=== PATIENT | female | born 1970 | race Hispanic/Latino ===

== ENCOUNTER 2021-07-17 00:36 | Day surgery (SDC) | payer OTHER, SELFPAY ==
[2021-07-05 14:09] VITALS: BMI 27.3
[2021-07-17 10:39] VITALS: BP 132/85; PULSE 68; RESP 18; TEMP 36.4; O2SAT 100
--- NOTE | 2021-07-17 10:45 | P.PNAN_ITS ---
Anes - Initial Pre Proc Eval Procedure: Operation Date: 07/17/21 12:30 Proposed Procedures p Esophagogastroduodenoscopy & Screening Colonoscopy - David Langley MD Date/Time: 07/17/21 10:45 Surgeon: David Tam MD Pre Op Diagnosis: GERD, neoplasm screening Patient Data Age: 51 Gender: F Height: 1.65 m Weight: 72.9 kg Last Vital Signs Temp 97.6 F 07/17/21 10:39 Pulse 68 07/17/21 10:39 Resp 18 07/17/21 10:39 BP 132/85 07/17/21 10:39 Pulse Ox 100 07/17/21 10:39 O2 Del Method Room Air 07/17/21 10:39 Allergies Allergy/AdvReac Type Severity Reaction Status Date / Time No Known Allergies Allergy Verified 07/17/21 10:38 Home Medications Medication Instructions Recorded Confirmed Type mvi,min-folic acid 400 mcg-black 1 tablet PO DAILY 03/14/21 07/05/21 History coh 40 mg-isoflav 40 mg-jujube tablet (Estroven Menopause) dthmtnrlek-vsogkopchmksi-uyqxdnlv 1 cap PO Q6H PRN pain #20 caps 03/15/21 07/05/21 Rx 50 mg-300 mg-40 mg capsule (Fioricet) pantoprazole 40 mg tablet,delayed 40 mg PO DAILY 07/05/21 07/05/21 History release Patient hx anesthesia problems: none Family hx anesthesia problems: none Results Review: All pre-operative results and documents have been reviewed as part of the pre- operative evaluation. [facility] Past Medical History Medical History (Updated 07/17/21 @ 11:01 by David Tam MD) Colon cancer screening Encounter for annual routine gynecological examination GERD (gastroesophageal reflux disease) Heartburn Screening mammogram, encounter for Tuberculosis Surgical History Surgical History (Updated 03/13/21 @ 12:59 by Zeenat Cole) Hx of appendectomy (11/23/14) Family History Family History (Updated 03/13/21 @ 13:12 by Zeenat Cole) Father Diabetes mellitus Mother Hypertriglyceridemia Social History Social History (Updated 03/14/21 @ 08:50 by Reba Oliveira [facility]) Smoking status: Never smoker Alcohol intake: never Substance use: never Substance use type: does not use Living arrangements: with family Additional living arrangements comments: spouse Gender identity (if verbalized by the patient): Female Sexual Orientation (if Verbalized by the Patient): Straight or Heterosexual Spiritual care concerns: No Anes - Eval Final PreProcedure Day of Procedure 07/17/21 10:45 Patient weight: normal Heart: regular rate and rhythm Lungs: clear to auscultation Airway: Mallampati scale class II Neurological: alert and oriented Last oral intake: >/= 8 hours ASA classification: II Emergent: no Anesthetic plan: proceed Anesthesia type and monitoring: general GIVS and standard monitoring Results Review: All pre-operative results and documents have been reviewed as part of the pre- operative evaluation. Informed Consent: The patient's anesthetic plan and its attendant risks and benefits were discussed with the patient/family/POA. Questions were solicited and answers provided to the satisfaction of the patient/family/POA.
--- NOTE | 2021-07-17 11:00 | PM.HPGS ---
History of Present Illness History of Present Illness Consent: Risks, benefits, and alternatives have been discussed and questions answered. Patient agrees to proceed with procedure. Chief complaint: GERD, neoplasm screening Narrative: Pattie Marrufo is a 51 year old female with longstanding GERD, still symptomatic despite pantoprazole with sour taste. Never had colonoscopy. Review of Systems Constitutional: Constitutional: Denies headache(s) and Denies weakness Eyes: Eyes: Denies blurry vision ENT: Reports Normal hearing present, Denies headache(s) and Denies neck pain Cardiovascular: Cardiovascular: Denies chest pain and Denies dyspnea Respiratory: Respiratory: Denies dyspnea Gastrointestinal: Gastrointestinal: Reports no additional gastrointestinal complaints Genitourinary: Genitourinary: Denies dysuria Musculoskeletal: Musculoskeletal: Denies neck pain Integumentary/Breasts: Skin/Breast: Denies dry skin Neurologic: Reports Normal hearing present, Denies headache(s) and Denies weakness Psychiatric: Psychiatric: Denies anxiety Endocrine: Endocrine: Denies change in body appearance Hematologic/Lymphatic: Hematologic/Lymphatic: Denies easy bleeding Allergic/Immunologic: Allergic/Immunologic: Denies urticaria PMFSH Past Medical History Medical History (Updated 07/17/21 @ 11:01 by David Tam MD) Colon cancer screening Encounter for annual routine gynecological examination GERD (gastroesophageal reflux disease) Heartburn Screening mammogram, encounter for Tuberculosis Surgical History Surgical History (Updated 03/13/21 @ 12:59 by Zeenat Cole) Hx of appendectomy (11/23/14) Family History Family History (Updated 03/13/21 @ 13:12 by Zeenat Cole) Father Diabetes mellitus Mother Hypertriglyceridemia Social History Social History (Updated 03/14/21 @ 08:50 by Reba Oliveira [facility]) Smoking status: Never smoker Alcohol intake: never Substance use: never Substance use type: does not use Living arrangements: with family Additional living arrangements comments: spouse Gender identity (if verbalized by the patient): Female Sexual Orientation (if Verbalized by the Patient): Straight or Heterosexual Spiritual care concerns: No Meds Home Medications and Allergies Home Medications Medication Instructions Recorded Confirmed Type mvi,min-folic acid 400 mcg-black 1 tablet PO DAILY 03/14/21 07/05/21 History coh 40 mg-isoflav 40 mg-jujube tablet (Estroven Menopause) issadspphu-vczyuuzwhqilq-oyyyuhdl 1 cap PO Q6H PRN pain #20 caps 03/15/21 07/05/21 Rx 50 mg-300 mg-40 mg capsule (Fioricet) pantoprazole 40 mg tablet,delayed 40 mg PO DAILY 07/05/21 07/05/21 History release Allergies Allergy/AdvReac Type Severity Reaction Status Date / Time No Known Allergies Allergy Verified 07/17/21 10:38 Vital Signs Vital Signs - 24 hr 07/17/21 10:39 Temperature 97.6 F Pulse Rate 68 Respiratory Rate 18 Blood Pressure 132/85 Pulse Oximetry 100 Oxygen Delivery Room Air Exam Const: General: comfortable and no acute distress HENMT: General nose exam: Normal nares present Eyes: General: appearance normal, both eyes and all related structures Neck: Neck: no JVD Resp: Auscultation: clear to auscultation bilaterally Cardio: Rate: regular rate Rhythm: regular rhythm GI: Inspection: non-distended GI Palp: Yes Soft to palpation Skin: General skin exam: normal color Neuro: General: gait normal Speech: normal speech Extrem: General: normal to inspection Psych: Mental Status: mental status grossly normal Assessment and Plan Assessment and plan (1) GERD (gastroesophageal reflux disease): Code(s): K21.9 - Gastro-esophageal reflux disease without esophagitis Status: Acute Assessment and Plan: egd with bx already on ppi (2) Colon cancer screening: Code(s): Z12.11 - Encounter
--- NOTE | 2021-07-17 11:06 | SUR.PREOP ---
DR CABRERA NOTIFIED PT HAD SMALL GLASS OF WATER AT 0730 THIS AM. NO NEW ORDERS
[2021-07-17] MEDS: LACTATED RINGERS 1,000 ML 150 ML IV CONT (11:11)
--- NOTE | 2021-07-17 11:27 | SUR.OPER ---
EGD ENDED AT 1121, COLONOSCOPY STARTED AT 1126.
[2021-07-17 11:40] VITALS: BP 115/70; PULSE 89; RESP 26; O2SAT 100
[2021-07-17 11:50] VITALS: BP 107/64; PULSE 75; RESP 20; O2SAT 100
[2021-07-17 12:00] VITALS: BP 106/68; PULSE 71; RESP 20; O2SAT 100
== END 2021-07-17 12:06 | disposition home or self-care (01) ==
PROVIDERS: PCP Physician Assistant; Visit Provider Internal Medicine Gastroenterology
PROC: 0DJ08ZZ Inspection of Upper Intestinal Tract, Via Natural or Artificial Opening Endoscopic (ICD-10-PCS; CPT 43235; principal; 2021-07-17 12:30)
DX: Z12.11 Encounter for screening for malignant neoplasm of colon (principal); K63.5 Polyp of colon; K29.50 Unspecified chronic gastritis without bleeding; K21.00 Gastro-esophageal reflux disease with esophagitis, without bleeding; K64.8 Other hemorrhoids; Z86.11 Personal history of tuberculosis
CPT/HCPCS: 45380; 43239; 88305; J2704; J7120

== ENCOUNTER 2024-04-14 14:19 | Outpatient (CLI) | payer OTHER, SELFPAY ==
--- NOTE | ~2024-04-14 | MM_ITS ---
EXAMINATION: MM screening constance BI w manoj HISTORY: Screening TECHNIQUE: Craniocaudal and mediolateral oblique 3-D tomosynthesis images were obtained and synthetic 2-D images were generated. CAD analysis was submitted and interpreted. COMPARISON: No prior mammogram is available for comparison at this institution. BREAST PARENCHYMAL COMPOSITION: Dense: The breasts are heterogeneously dense, which may obscure small masses FINDINGS: There are regional asymmetries in the upper outer quadrant of the right breast. In the left breast there is an asymmetry in the upper inner quadrant, posterior third. There is an obscured mass in the subareolar location of the left breast. There are no suspicious calcifications or architectur al distortion. IMPRESSION: 1. Bilateral breast asymmetries. Left subareolar mass. 2. Additional mammographic views and possible breast ultrasound are recommended. BI-RADS Category 0: Incomplete: Needs additional imaging evaluation. Reviewed, dictated and finalized at location B. S TYPE SCREW MACHINE OPERATOR IMPRESSION: 1. Bilateral breast asymmetries. Left subareolar mass. 2. Additional mammographic views and possible breast ultrasound are recommended . BI-RADS Category 0: Incomplete: Needs additional imaging evaluation.
--- OUTSIDE RECORDS SUMMARY | 2024-04-14 14:24 | XMS_ITS | Clinical Summary ---
Author Organization [facility] Address [address] [place] [address] Care Team Providers Care Environmental Educator Name Role Phone JenniferShyanne Jessie DEWEY Primary Care Pr ovider Allergies No known active allergies Medications cephalexin (KEFLEX) 500 mg capsule take 1 capsule by oral route every 8 hours 30 0 03/27/2016 Active Active Problems Problem Noted Date Diagnosed Date Migraine 06/04/2015 Overview (05/29/2016): Migraines Gastroesophageal reflux disease 03/02/2014 Overview (05/29/2016): GERD Immunizations Immunization Administration Dates Next Due Influenza, Trivalent, Recomb inant, Egg Free, Preservative Free, Antibiotic Free, IM (FLUBLOK) 03/02/2014 Surgical History Surgery Date Site/Laterality Comments OTHER SURGICAL HISTORY Dr. Giuliana Melendrez gynleticia APPENDECTOMY Appendectomy Medical History Medical History Date Comments Hx Other Medical 02/2005 acid reflux; Co mments: CREEL CLEANER 03/02/2014 - Family History Medical History Relation Name Comments Other Brother 2 Alive and well; Diabetes Father Diabetes mellit us; Cause of : Diabetes mellitus Other Mother Alive and well; Other Sister 2 Alive and well; Relation Name Status Comments Brother 1 Alive Brother 2 Father Mother Alive Sister 1 Alive Sister 2 Social History Tobacco Use Types Packs/Day Years Used Date Smoking Tobacco: Never Smokeless Tobacco: Never Tobacco Cessation:Counseling Given: Not Answered Alcohol Use Standard Drinks/Week Comments No 0 (1 standard drink = 0.6 oz pur e alcohol) Personal Safety Answer Date Recorded Getting School Help Needed Not on file 01/09 /2024 Comments Unknown Sex and Gender Information Value Date Recorded Sex Assigned at Not on file Legal Sex Female 5:46 PM COOKER SULFITE Gender Identity Not on file Sexual Orientation Not on file Obstetrics History Last Filed Vital Signs Vital Sign Reading Time Taken Comments Blood Pressure 118/90 10/28/2023 10:51 AM CDT Pulse 76 10/28/2023 10:51 AM CDT Temperature 36.3 C (97.3 F) 10/28/2023 10:51 AM CDT Respiratory Rate 18 11/25/2017 11:49 AM CDT Oxygen Saturation 96% 10/28/2023 10:51 AM CDT Inhaled Oxygen Concentration - - Weight 73.2 kg (161 lb 4.8 oz) 10/28/2023 10:51 AM CDT Height 165.1 cm (5' 5 ) 10/28/2023 10:51 AM CDT Body Mass Index 26.84 10/28/2023 10:51 AM CDT Plan of Treatment Health Maintenance Due Date Last Done Comments Cervical Cancer Screening 1972 Colon Cancer Screening-Colonoscopy 1972 Depression Screening 1972 Hepatitis C Screening 1972 Hepatitis B Screening 1990 Regular Well Visit/Exam 18-64 1990 Breast Cancer Screening-Mammogram 03/28/2015 015 DTaP/Tdap/Td Vaccine (2 - Td or Tdap) 12/21/2018 12/21/2008 Zoster Vaccine (1 of 2) 2022 Influenza Vaccine (#1) 2023 03/02/2014 Pneumococcal vaccine <65 Aged Out No longer eligible based on patient's age to complete this topic Procedures Procedure Name Priority Date/Time Associated Diagnosis Comments DIGITAL MAMMOGRAPHY Routine 03/28/2014 3 :10 PM COOKER SULFITE from Last 3 Months or Most Recently Relevant to Health Maintenance Results * DIGITAL MAMMOGRAPHY (03/28/2014 3:10 PM COOKER SULFITE) Anatomical Region Laterality Modality Mammography 03/28/2014 3:10 PM COOKER SULFITE Narrative 04/17/2014 10:24 PM COOKER SULFITE YC Diag Mamm Bi Acc#: [id number] DIAG MAMM W ADAIR BI Acc#: [id number] DATE OF EXAM: Mar 28 2014 CLINICAL HISTORY: Right axillary pain; ? lump. Previous history of breast cancer (cousin, premenopausal). Performed by: ss RESULT: Craniocaudal, mediolateral oblique views and 90 degree lateral medial views with tomosynthesis demonstrate heterogeneously dense parenchyma in the breasts bilaterally. No dominant mass, skin thickening, nipple retraction or suspicious cluster of microcalcifications is seen. Digital technology was employed plus computer-aided detection software (PhotoTLC) was utilized in interpretation of these images. This facility utilizes a reminder system to notify patients of yearly mammograms. IMPRESSION: 1. NO FINDINGS SUSPICIOUS FOR MALIGNANCY. 2. IF PRIOR MAMMOGRAM ([facility] IS OBTAINED FOR COMPARISON, AN ADDENDUM WILL FOLLOW. BI-RADS CATEGORY 2 - BENIGN FINDINGS ADDENDUM: 04/17/14 / Efforts to obtain prior mammograms on this patient have been exhausted. No additional imaging is necessary at this time. Recommend rescreening in one year. Interpreting Physician: DR KARI ROBLES M.D. Read on: Mar 28 2014 3:57P Transcribed by: [facility] On: Mar 28 2014 3:57P Approved Electronically by: TRAVIS Carbone, DR PIERCE on: Apr 17 2014 10:24P Attending: MARY ELLEN BELTRAN Requesting: MARY ELLEN BELTRAN Requesting Fax: -- Attending Fax: -- Attending ID: [id number] Requesting ID: [id number] Report To 1 ID: [id number] Report To 1 Name: MARY ELLEN BELTRAN Report To 1 FAX: -- NextGen Order #: Procedure Note Provider, MD Magui - 06/20/2016 YC Diag Mamm Bi Acc#: [id number] DIAG MAMM W ADAIR BI Acc#: [id number] DATE OF EXAM: Mar 28 2014 CLINICAL HISTORY: Right axillary pain; ? lump. Previous history of breast cancer (cousin,premenopausal). Performed by: patrick RESULT: Craniocaudal, mediolateral oblique views and 90 degree lateral medialviews with tomosynthesis demonstrate heterogeneously dense parenchyma inthe breasts bilaterally. No dominant mass, skin thickening, nippleretraction or suspicious cluster of microcalcifications is seen. Digitaltechnology was employed plus computer-aided detection software (R2) wasutilized in interpretation of these images. This facility utilizes [employer] system to notify patients of yearly mammograms. IMPRESSION: 1. NO FINDINGS SUSPICIOUS FOR MALIGNANCY. 2. IF PRIOR MAMMOGRAM ([facility] 02/2013?) IS OBTAINED FORCOMPARISON, AN ADDENDUM WILL FOLLOW. BI-RADS CATEGORY 2 - BENIGN FINDINGS ADDENDUM: 04/17/14 CS/VM Efforts to obtain prior mammograms on thispatient have been exhausted. No additional imaging is necessary at thistime. Recommend rescreening in one year. Interpreting Physician: DR KARI ROBLES M.D. Read on: Mar 28 20143:[id number] Transcribed by: krystal On: Mar 28 2014 3:57P Approved Electronically by: TRAVIS Carbone, DR PIERCE on: Apr 17 201410:24P Attending: MARY ELLEN BELTRAN Requesting: MARY ELLEN BELTRAN Requesting Fax: -- Attending Fax: -- Attending ID: [id number] Requesting ID: [id number] Report To 1 ID: [id number] Report To 1 Name: MARY ELLEN BELTRAN Report To 1 FAX: -- NextGen Order #: us Historical Provider MD REID MAMMO PROCEDURES Michelle l Result from Last 3 Months or Most Recently Relevant to Health Maintenance Insurance [facility] CHOICE PLUS Member Subscriber Plan / Payer (Ef fective 2021-Present) Name:Pattie Marrufo Relation to Subscriber:Self Name:Pattie Marrufo Payer ID:[id number] (NAIC) Type:[facility] HMO/PPO Address: [place] [id number] Care Teams Environmental Educator Relationship Specialty Start Date End Date Shyanne Rodriguez PA PCP - General Physician Automatic Packer Operator 05/21/22
--- OUTSIDE RECORDS SUMMARY | 2024-04-14 14:24 | XMS_ITS | Referral Summary ---
Author Organization [facility] Address [address] [place] [address] Care Team Providers Care Refining Still Operator Name Role Phone Jennifer Shyanne DEWEY Primary Care Pr ovider Allergies No [...] Preservative Free, Antibiotic Free, IM (FLUBLOK) 03/02/2014 Social History Tobacco Use Types Packs/Day Years Used Date Smoking Tobacco: Never Smokeless Tobacco: Never Tobacco Cessation:Counseling Given: Not Answered Alcohol Use Standard Drinks/Week Comments No 0 (1 standard drink = 0.6 oz pur e alcohol) Personal Safety Answer Date Recorded Getting School Help Needed Not on file 03/03 Comments Unknown Sex and Gender Information Value Date Recorded Sex Assigned at Not on file Legal Sex Female 5:46 PM BALE COVERER Gender Identity Not on file Sexual Orientation Not on file Last Filed Vital Signs Vital Sign Reading [...] 10/28/2023 10:51 AM CDT Plan of Treatment Not on file Procedures Procedure Name Priority Date/Time Associated Diagnosis Comments DIGITAL MAMMOGRAPHY Routine 03/28/2014 3 :10 PM BALE COVERER from Last 3 Months or Most Recently Relevant to Health Maintenance Results * DIGITAL MAMMOGRAPHY (03/28/2014 3:10 PM BALE COVERER) Anatomical Region Laterality Modality Mammography 03/28/2014 3:10 PM BALE COVERER Narrative 04/17/2014 10:24 PM BALE COVERER YC Diag Mamm Bi Acc#: [id number] DIAG MAMM W ADAIR BI Acc#: [id number] DATE OF EXAM: Mar 28 2014 CLINICAL [...] technology was employed plus computer-aided detection software (R2) was utilized in interpretation of these images. This facility utilizes a reminder system to notify patients of yearly mammograms. IMPRESSION: 1. NO FINDINGS SUSPICIOUS FOR MALIGNANCY. 2. IF PRIOR MAMMOGRAM ([facility] 02/2013?) IS OBTAINED FOR COMPARISON, AN ADDENDUM WILL FOLLOW. BI-RADS CATEGORY 2 - BENIGN FINDINGS ADDENDUM: 04/17/14 CS/ Efforts to obtain prior mammograms on this patient have been exhausted. No additional imaging is necessary at this time. Recommend rescreening in one year. Interpreting Physician: DR KARI ROBLES M.D. Read on: Mar 28 2014 3:57P Transcribed by: [facility] On: Mar 28 2014 3:57P Approved Electronically by: TRAVIS Carbone, DR PIERCE on: Apr 17 2014 10:24P Attending: MARY ELLEN BELTRAN Requesting: MARY ELLEN BELTRAN Requesting Fax: -- Attending Fax: -- Attending ID: [id number] Requesting ID: [id number] Report To 1 ID: [id number] Report To 1 Name: MARY ELLEN BELTRAN Report To 1 FAX: -- NextGen Order #: Procedure Note Provider, MD Magui - 06/20/2016 YC Diag Mamm Bi Acc#: [id number] DIAG MAMM W ADAIR BI Acc#: [id number] DATE OF EXAM: Mar 28 2014 CLINICAL [...] interpretation of these images. This facility utilizes [employer] system to notify patients of yearly mammograms. IMPRESSION: 1. NO FINDINGS SUSPICIOUS FOR MALIGNANCY. 2. IF PRIOR MAMMOGRAM ([facility] 02/2013?) IS OBTAINED FORCOMPARISON, AN ADDENDUM WILL FOLLOW. BI-RADS CATEGORY 2 - BENIGN FINDINGS ADDENDUM: 04/17/14 CS/VM Efforts to obtain prior mammograms on thispatient have been exhausted. No additional imaging is necessary at thistime. Recommend rescreening in one year. Interpreting Physician: DR KARI ROBLES M.D. Read on: Mar 28 20143:57P Transcribed by: [facility] On: Mar 28 2014 3:57P Approved Electronically by: TRAVIS Carbone, DR PIERCE on: Apr 17 201410:24P Attending: MARY ELLEN BELTRAN Requesting: MARY ELLEN BELTRAN Requesting Fax: -- Attending Fax: -- Attending ID: [id number] Requesting ID: [id number] Report To 1 ID: [id number] Report To 1 Name: MARY ELLEN BELTRAN Report To 1 FAX: -- NextGen Order #: Historical Provider MD REID MAMMO PROCEDURES Michelle l Result from Last 3 Months or Most Recently Relevant to Health Maintenance Insurance [facility] HMO/PPO Address: [facility] [address] [place] [address] [id number] Care Teams Refining Still Operator Relationship Specialty Start Date End Date Shyanne Rodriguez PA PCP - General Physician Fiscal Accounting Clerk 05/21/22
--- OUTSIDE RECORDS SUMMARY | 2024-04-14 14:25 | XMS_ITS | Clinical Summary ---
Author Organization [facility] Address [address] [place] [address] Phone Care Team Providers Care Wire Charger Name Role Phone Shyanne Rodriguez Primary Care Provider [phone] Social History Tobacco Use Types Packs/Day Years Used Date Smoking Tobacco: Never Assessed Comments Unknown Sex and Gender Information Value Date Recorded Sex Assigned at Not on file Legal Sex Female 11:20 PM CDT Gender Identity Not on file Sexual Orientation Not on file Plan of Treatment Health Maintenance Due Date Last Done Comments Hepatitis C Virus (HCV) Screening 1972 TdaP Immunization 1972 Hepatitis B Immunization (1 of 3 - 19+ 3-dose series) 06/22/1991 Pap Smear 1993 Cervical Cancer Screening (CCS) 2002 HPV/Cotest 2002 Colonoscopy 2017 Colorectal Cancer Screening 2017 Cologuard 2022 Immunochemical Fecal Occult Blood 2022 Mammogram 2022 Pneumococcal Immunization (5 0+ years) (1 of 1 - PCV) 2022 Zoster Immunization (1 of 2) 2022 Influenza Immunization (#1) 2023 SARS-COV-2 Immunization ( - season) 2023 Respiratory Syncytial Virus (RSV) Immunization (Adult) (1 - 1-dose 75+ series) 06/22/2047 Meningococcal Immunization (ACWY) Aged Out No longer eligible based on patient's age to complete this topic Pneumococcal Immunization Combined Aged Out No longer eligible based on patient's age to complete this topic Rotavirus Immunization Aged Out No lo nger eligible based on patient's age to complete this topic Insurance [facility] Care Teams Wire Charger Relationship Specialty Start Date End Date Shyanne Rodriguez PA PCP - General Family Medicine 07/03/22
--- OUTSIDE RECORDS SUMMARY | 2024-04-14 14:25 | XMS_ITS | Data Portability ---
Author Organization [place] [facility] [employer], Main Office Address [address] [place] [address] Assessment No assessment recorded. Plan of Treatment Reminders Order Date Submit Date Provider Last Modified By Organization Details Last Modified Time Details Appointments None recorded. Lab TSH + free T4, serum 2023 024 [facility], [address] [place], [address], 4 11:54:09 lipid panel, serum 2023 024 [facility], [address] [place], [address], 4 11:54:09 CMP, serum or plasma 2023 024 [facility], [address] [place], [address], 4 11:54:09 CBC w/ auto diff 2023 024 [facility], [address] [place], [address], 4 16:32:52 HbA1c (hemoglobin A1c), blood 2023 024 [facility], [address] [place], [address], 4 16:32:53 urinalysis, reflex culture 2023 024 [facility], [address] [place], [address], 4 15:59:52 urinalysis, complete 2022 023 [facility] Not available 3 10:56:16 culture, urine 2022 023 [email or web address] Not available 3 08:54:39 CBC w/ auto diff 2022 023 [facility] Not available 3 10:56:16 CMP, serum or plasma 2022 023 [facility] Not available 3 10:56:16 Referral None recorded. Procedures None recorded. Surgeries None recorded. Imaging NM, hepatobilia ry scan 2023 024 [email or web address] [facility] Scheduling, [address] [facility] [place], [address], 4 11:09:59 XR, kidney + ureter + bladder 2022 023 [facility] Not available 3 17:34:02 US, gallbladder - Per [facility] no auth is required [employer]. 2022 023 [facility] Not available 3 17:33:10 Medication Orders None recorded. Patient TargetsNo targets recorded. Patient InstructionsNo instructions recorded. Reason for Referral None Reported. Results Created Date Observation Date Name Description Value Unit Range Abnormal Flag Note LastModifiedBy Organization Detail LastModifiedTime 11/16/19 21 11/15/2020 nerve condu ction study /EMG, upper extre mity (PROC ) No observ ation record ed. [id number] [facility] Scheduling [address] [place], [address], 04/23/2022 08:51:52 04/12/19 22 04/09/2021 US, pelvi s No observ ation record ed. [id number] Not Available 04/23/2022 08:51:52 04/12/19 22 04/09/2021 MAMMO , scree dewey, digit al, bilat eral No observ ation record ed. [id number] Not Available 04/23/2022 08:51:52 06/13/19 22 06/11/2021 US, nura castañeda r No observ ation record ed. [id number] [facility] Scheduling [address] [facility] , [place], [address], 04/23/2022 08:51:52 07/18/19 22 07/17/2021 colon oscop y nakul bennettg (PROC ) No observ ation record ed. [id number] Not Available 04/23/2022 08:51:52 05/14/19 23 04/22/2022 MAMMO , scree dewey, digit al, bilat eral No observ ation record ed. BARCODE Not Available 2022 16:15:38 07/03/19 23 07/02/2022 US, nura castañeda r No observ ation record ed. [email or web address] [facility] [address] [place], [address], 07/08/2022 15:34:36 07/03/19 23 07/02/2022 XR, kidne y + urete r + bladd er No observ ation record ed. [email or web address] [facility] [address] [place], [address], 07/08/2022 15:34:21 09/11/19 23 08/20/2022 US, joshuaas t No observ ation record ed. [email or web address] [facility] [address] [place], [address], 09/10/2022 15:25:49 Result Notes None recorded. 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 Procedures Surgical History Date Name Laterality Status Provider Name and Address Organization Details Recorded Time 5 Appendectomy completed Not Available [facility] 023 08:44:05 Imaging Results Imaging Date Name Status LastModified by Organiz ation Details LastModified Time 06/11/2021 US, gallbladder completed [id number] [facility] Scheduling [address] [place], [address], 04/23/2022 08:51:52 07/17/2021 colonoscopy screening (PROC) completed [id number] Information not available 04/23/2022 08:51:52 11/15/2020 nerve conduction study/EMG, upper extremity (PROC) completed [id number] [facility] Scheduling [address] [place], [address], 04/23/2022 08:51:52 04/09/2021 US, pelvis completed [id number] Information not available 04/23/2022 08:51:52 04/09/2021 MAMMO, screening, digital, bilateral completed [id number] Information not available 04/23/2022 08:51:52 04/22/2022 MAMMO, screening, digital, bilateral completed BARCODE Information not available 05/13/2022 16:15:38 07/02/2022 US, gallbladder completed [email or web address] [facility] [address] [place], [address], 07/08/2022 15:34:36 07/02/2022 XR, kidney + ureter + bladder completed [facility] [address] [place], [address], 07/08/2022 15:34:21 08/20/2022 US, breast completed [email or web address] [facility] [address] [place], [address], 09/10/2022 15:25:49 Procedure Notes None recorded. Medical Equipment None Reported. Allergies No known drug allergies Medications Name Sig Start Date Stop Date Status Note LastModified by Organization Details LastModified Time vitamin E 670 mg (1,000 unit) capsule Take 1000 units by oral route for 90 days. 10/18 completed Not Available Not Available Not Available cefuroxime axetil 250 mg tablet 02/04 completed Not Available Not Available Not Available azithromyci n 250 mg tablet active Not Available Not Available Not Available ranitidine 300 mg tablet active Not Available Not Available Not Available Tubersol 5 tub. unit/0.1 mL intradermal injection solution Inject 0.1 mL by intraderm al route. 03/11 completed [facility]#4 [phone] [phone]- [phone] Not Available Not Available Not Available estradiol-n orethindron e acet 1 mg-0.5 mg tablet 03/02 completed Not Available Not Available Not Available amoxicillin 875 mg tablet Take 1 tablet every 12 hours by oral route. active Not Available Not Available No t Available famotidine 20 mg tablet active Not Available Not Available Not Available cephalexin 500 mg capsule 02/04 completed Not Available Not Available Not Available pantoprazol e 40 mg tablet,donna yed release TAKE 1 TABLET BY MOUTH EVERY DAY IN THE MORNING active Not Available Not Available No t Available fluoxetine 10 mg capsule TAKE 1 CAPSULE BY MOUTH EVERY DAY 03/02 completed Not Available Not Available Not Available PreviDent 5000 Plus 1.1 % cream active Not Available Not Available Not Available butalbital- acetaminoph en-caffeine 50 mg-300 mg-40 mg capsule 03/02 completed Not Available Not Available Not Available [employer] COVID-19 Test kit 04/26 completed Not Available Not Available Not Available Vitals Date Recorded Body mass index (BMI) Body mass index (BMI) Body mass index (BMI) Body height Body height Body height Oxygen saturation Oxygen saturation in Arterial blood by Pulse oximetry Oxygen saturation Oxygen saturation in Arterial blood by Pulse oximetry Oxygen saturation Oxygen saturation in Arterial blood by Pulse oximetry Heart rate Heart rate Heart rate Respiratory rate Respiratory rate Body temperature Body temperature Body temperature Body weight Body weight Body weight Systolic blood pressure Diastolic blood pressure Systolic blood pressure Diastolic blood pressure Systolic blood pressure Diastolic blood pressure Provider Name and Address Organization Details Last Updated DateTime 3 28.2 kg/m2 28.2 kg/m2 30.2 kg/m2 162.56 cm 162.56 cm 162.56 cm 99 % 99 % 98 % 98 % 98 % 98 % 84 /min 73 /min 80 /min 16 /min 16 /min 97.7 [degF] 97.4 [degF] 97.7 [degF] 45673.8 7 g 14548.1 5 g 24240.2 6 g 122 mm[Hg] 80 mm[Hg] 138 mm[Hg] 88 mm[Hg] 122 mm[Hg] 80 mm[Hg] Not Available [facility] 3 08:46:34 Date Recorded Body height Body temperature Body mass index (BMI) Body weight Respiratory rate Oxygen saturation Oxygen saturation in Arterial blood by Pulse oximetry Heart rate Systolic blood pressure Diastolic blood pressure Provider Name and Address Organization Details Last Updated DateTime 3 162.56 cm 97.8 [degF] 27.3 kg/m2 10797.1 9 g 16 /min 98 % 98 % 72 /min 120 mm[Hg] 80 mm[Hg] SCOOBY Martin [facility] [employer] [facility] 3 10:36:24 Date Recorded Body height Provider Name an d Address Organization Details Last Updated DateTime 03/02/2023 162.56 cm SCOOBY Martin [place] [employer] [facility] 03/02/2023 16:44:25 Date Recorded Body mass index (BMI) Body weight Respiratory rate Oxygen saturation Oxygen saturation in Arterial blood by Pulse oximetry Heart rate Systolic blood pressure Diastolic blood pressure Provider Name and Address Organization Details Last Updated DateTime 4 28.3 kg/m2 01567.7 4 g 16 /min 99 % 99 % 66 /min 120 mm[Hg] 80 mm[Hg] MACO Myles [address], [place], [address], [facility] [employer] [facility] 4 17:37:43 Social History Question Answer Notes LastModified by Organizat ion Details LastModified Time Tobacco Smoking Status Never Smoker Not Available [employer] 04/23/2022 08:43:58 Do You Have An Advance Directive? No [id number] Information not available 04/23/2022 What Is Your Level Of Alcohol Consumption? None MIGRATION.[id number] 2080 Information not available 04/23/2022 What Is Your Level Of Caffeine Consumption? Occasional MIGRATION.261614 [id number] Information not available 04/23/2022 In The 14 Days Before Symptom Onset, Have You Had Close Contact With A Laboratory-confir med COVID-19 While That Case Was Ill? No MIGRATION.[id number] Information not available 04/23/2022 In The 14 Days Before Symptom Onset, Have You Had Close Contact With A Person Who Is Under Investigation For COVID-19 While That Person Was Ill? No MIGRATION.[id number] 7998 Information not available 04/23/2022 Are You Currently Employed? No [email or web address] Information not available 07/01/2022 What Type Of Diet Are You Following? REGULAR MIGRATION.980216 3447 Information not available 04/23/2022 What Is The Highest Grade Or Level Of School You Have Completed Or The Highest Degree You Have Received? [id number] MIGRATION.984018 4243 Information not available 04/23/2022 What Is Your Occupation? Stay At Home Mom MIGRATION.[id number] 0965 Information not available 04/23/2022 Have There Been Any Changes To Your Family Or Social Situation? No MIGRATION.365212 2019 Information not available 04/23/2022 Do You Have A Medical Power Of Database Programmer? No MIGRATION.025185 2411 Information not available 04/23/2022 What Is Your Relationship Status? MIGRATION.001333 5861 Information not available 04/23/2022 Do You Use Your Seat Belt Or Car Seat Routinely? Yes MIGRATION.[id number] 7864 Information not available 04/23/2022 Do You Have Smoke And Carbon Monoxide Detectors In Your Home? Yes MIGRATION.183145 9619 Information not available 04/23/2022 Are You Passively Exposed To Smoke? No MIGRATION.468840 6879 Information not available 04/23/2022 Do You Feel Stressed (tense, Restless, Nervous, Or Anxious, Or Unable To Sleep At Night)? [id number] MIGRATION.087160 1025 Information not available 04/23/2022 Do You Use Any Illicit Or Recreational Drugs? No MIGRATION.701545 6691 Information not available 04/23/2022 Do You Use Sunscreen Routinely? Yes MIGRATION.047132 7378 Information not available 04/23/2022 Has Tobacco Cessation Counseling Been Provided? No MIGRATION.817001 5563 Information not available 04/23/2022 Have You Recently Traveled Abroad? No MIGRATION.103527 3129 Information not available 04/23/2022 Do You Have Any Dietary Restrictions? No MIGRATION.508426 6827 Information not available 04/23/2022 Do You Or Have You Ever Used Any Other Forms Of Tobacco Or Nicotine? No MIGRATION.643097 3326 Information not available 04/23/2022 Sex: Unknown Functional Status Question Answer Note LastModified by Organizat ion Details LastModified Time What is your exercise level? Occasional [id number] 26 Information not available 04/23/2022 Mental Status None recorded. Family History Relationship Description Onset Age of this Age Resolved Age Notes LastModified by Organization Details LastModified Time Father Diabetes mellitus 79 [id number] Not available 04/23/2022 08:44:06 Mother Hypertriglyc eridemia [id number] Not available 04/23/2022 08:44:06 Medical History Condition Response HEADACHES/MIGRAINES Y HEARTBURN / REFLUX Y TUBERCULOSIS Y Gynecological History Statement/Question Response Date of Last Mammogram 03/11/2018 Obstetrics History GPAL:G 2 P 0 0 0 2 Type Value Living 2 Total 2 Past Encounters Encounter ID Performer Location Encounter Start Date Encounter Closed Date Diagnosis/Indication Diagnosis SNOMED-CT Code Diagnosis ICD10 Code Diagnosis Note [id number] [facility] [place] [address] [place] [address] 10/19/2020 00:00:00 10/21/2020 11:09:52 [id number] [facility] [address] [place] [address] 11/26/2020 00:00:00 12/20/2020 23:15:47 [id number] [facility] [address] [place] [address] 04/29/2021 00:00:00 05/23/2021 17:17:17 [id number] [facility] [address] [place] [address] 01/27/2022 00:00:00 02/21/2022 01:18:09 [id number] MACO Myles [facility] [address] [place] [address] 07/02/2022 09:44:54 07/02/2022 10:59:38 Right upper quadrant pain 933949402 R10.11 refer for STAT gallbladde r u/s and CBC and CMP. Right flank pain 3907466 09 R10.9 r/o renal stone. check KUB xray also and urine w/cx [id number] MACO Myles [facility] [address] [place] [address] 03/02/2023 16:41:33 03/02/2023 17:29:31 Adult health examination 886815681 Z00.01 well exam completed. Right uppe r quadrant pain 964817226 R10.11 proceed with NM hida scan as ordered prior. check UA w/cx Cholesterol screening 27 3423026 Z13.220 fasting lipids due Diabetes m ellitus screening 954145771 Z13.1 a1c screening due Thyroid di sorder screening 654584065 Z13.29 thyroid panel due Long-term drug therapy 706618710 Z79.899 CBC and CMP due Gastroesop hageal reflux disease 681186727 K21.9 taking PRN pantoprazo le 40mg daily therapy. Health Concerns Section Related Observation LastModified by Organization Detai ls LastModified Time None Recorded Concern Status LastModified by Organization Details LastModified Time None Recorded Advance Directives Directive N: Payers Encounter Date Sequence Insurance Name Policy Number Policy Tate Covered Member ID Tate Member ID Guarantor Name 07/02/2022 1 [facility] [id number] Pattie Marrufo [id number] Pattie Marrufo 03/02/2023 1 [facility] [id number] Pattie Marrufo [id number] Pattie Marrufo Notes Date Note Type Note Provider Name and Address Organization Details Recorded Time 11/26/2020 text/html Anxiety, General ized DisorderReported bypatient.Associated Symptoms:no difficulty concentrating; no difficulty controlling worry; no difficulty swallowing; no anxiety; no excessive sweating; no hot flashes; no palpitations; no shortness of breath; no nausea; no diarrhea; no fatigue; no irritability; no muscle tension; no muscle aches; no trembling; no twitching; no headaches; no restlessness; no sleep disturbances Not Available [employer] 12/20/2020 23:15:47 04/29/2021 text/html Reflux/GERDRepor sonam bypatient.Symptomsasy mptomatic; no difficulty swallowing; no pain swallowing; no postprandial pain; heartburn; with acid / burning taste; nocturnal Quality:burning;press ure; pain radiates to the back Severity:discomfort: 8/10; waking up at night;worsening Duration:present 5 or more years Onset/Timing:still present Context:non-smoker; no drug/alcohol abuse; no drug alcohol withdrawal;related to any meal;related to spicy foods Alleviating Factors:OTC medication Aggravating Factors:worsened by food Associated Symptoms:no food getting stuck; no vomiting; not vomiting blood; no regurgitation; no difficulty swallowing; no pain when swallowing; no decreased appetite; no black/tarry stools; no throat pain; no dental erosion; no bloating; no early satiety; no halitosis;frequent coughing;feels like fullness/mass in throat;hoarseness;bel andrew/burping;nausea; shortness of breath;chest pain;heartburn;bad taste;fatigueNotes:Pt had pH monitoring done 5-6 years ago due to history of GERD. She had an upper endoscopy done 5 years ago as well. Not Available [employer] 05/23/2021 17:17:17 01/27/2022 text/html Reflux/GERDRepor sonam bypatient.Symptomsasy mptomatic; no difficulty swallowing; no pain swallowing; no postprandial pain Severity:same Duration:present 5 or more years Onset/Timing:gone now Context:non-smoker; no drug/alcohol abuse; no drug alcohol withdrawal; not related to food/drink Alleviating Factors:medication Aggravating Factors:worsened by food Associated Symptoms:no frequent coughing; no hoarseness; no food getting stuck; no belching/burping; no vomiting; not vomiting blood; no regurgitation; no shortness of breath; no chest pain; no heartburn; no difficulty swallowing; no pain when swallowing; no bad taste; no decreased appetite; no weight loss; no black/tarry stools; no fatigue; no throat pain; no dental erosion; no bloating; no early satiety; no halitosis Not Available [employer] 02/21/2022 01:18:09 07/02/2022 text/html Abdominal PainReported bypatient.Location:ra diating (to R side of back); Mid R side of abd Quality:pain;sharp; burning Severity:moderate; pain level 6/10 Duration:intermittent ; started: (4 days) Onset/Timing:better Modifying Factors:eating (makes it worse) Associated Symptoms:no fever; no chills; no blood in the urine; no heartburn; no shortness of breath;nausea; having more BM but not diarrhea Other:denies possible MACO Myels [address] [facility], [place] [address], [place], [address], [employer] [facility] [employer] 07/02/2022 11:16:44 03/02/2023 text/html Reflux/GERDRepor sonam bypatient.Severity:sa me Duration:present 5 or more years Alleviating Factors:medication WellnessStates she never got HIDA scan. I am closing order and if needed she will need new order. MACO Myles [address] [facility], [place] [address], [place], [address], [employer] [facility] [employer] 03/03/2023 19:02:11 OBGyn Episode No OBEpisode recorded.
--- OUTSIDE RECORDS SUMMARY | 2024-04-14 14:25 | XMS_ITS | Encounter Summary ---
Author Organization [facility] Address [address] [place] [address] Care Team Providers Care R D Internship Name Role Phone Unavailable Primary Care Provider Unavailabl e Encounter Details Date Type Department Care Team (Late st Contact Info) Description 09/03/2008 Inpatient Historical HIS PATIENT IN A BED Kaden Yeager MD [address] [place] [id number] Social History Tobacco Use Types Packs/Day Years Used Date Smoking Tobacco: Never Assessed Comments Unknown Sex and Gender Information Value Date Recorded Sex Assigned at Not on file Legal Sex Female 5:45 AM BANK BOSS Gender Identity Not on file Sexual Orientation Not on file documented as of this encounter Plan of Treatment Not on file documented as of this encounter Procedures Procedure Name Priority Date/Time Associated Diagnosis Comments BACTERIAL VAGINOSIS STAIN Stat 09/03/2008 11:11 AM CDT GC/CHLAMYDIA, GENITAL Stat 09/03/2008 11:11 AM CDT URINALYSIS W/REFLEX MICROSCOPIC Stat 09/03/2008 10:03 AM CDT documented in this encounter Results * GC AND CHLAMYDIA DNA DETECTION (09/03/2008 11:11 AM CDT) FINAL REPORT No Neisseria gonorrhoeae detected. No Chlamydia trachomatis detected. [facility] Endocervical 09/03/2008 11:1 1 AM CDT 09/03/2008 11:24 AM CDT Narrative INTERFACE SYSTEM - 09/04/2008 12:52 PM CDT All identification methods for Chlamydia trachomatis and Neisseria gonorrhoeae can yield false positive results. In circumstances where diagnosis could lead to adverse psychosocial impacts, additional testing is recommended. A negative test result does not exclude infection. Consultation with the lab is recommended whenever the test result is negative and the clinical indications strongly suggest Chlamydial or Gonorrhoeal infection. Culture is the only recommended procedure for diagnosing Chlamydial or Gonorrhoeal infection in cases of suspected child abuse. Kaden Yeager MD MICRO - GEN ORDERABLES COM Fin al Result Performing Organization Address [facility] Phone Number INTERFACE SYSTEM Refer to clinic/hospital department [facility] CLIA# [id number] [address] [place] [address] * BACTERIAL VAGINOSIS STAIN (09/03/2008 11:11 AM CDT) FINAL REPORT Cells: epithelial cells > WBC's Elis Score = 0 Interpretation : Consistent with normal vaginal estrellita [facility] Vaginal 09/03/2008 11:1 1 AM CDT 09/03/2008 11:24 AM CDT Kaden Yeager MD MICROBIOLOGY - GENERAL ORDERAB LES Final Result Performing Organization Address [facility] Phone Number INTERFACE SYSTEM Refer to clinic/hospital department [facility] CLIA# [id number] [address] [place] [address] * URINALYSIS (09/03/2008 10:03 AM CDT) LEUKOCYTE ESTERASE UA Negative Negative [facility] SPECIFIC GRAVITY UA 1.007 1.001 - 1.035 [facility] BLOOD UA Negative Negative [facility] GLUCOSE UA Negative Negative [facility] COLOR UA Colorless [facility] NITRITE UA Negative Negative [facility] UROBILINOGEN UA <1 <=1 mg/dL [facility] PH UA 7.5 5.0 - 8.0 [facility] KETONES UA Negative Negative [facility] CLARITY UA Clear Clear [facility] PROTEIN UA Negative Negative [facility] BILIRUBIN UA Negative Negative [facility] 09/03/2008 10:0 3 AM CDT 09/03/2008 10:10 AM CDT us Kaden Yeager MD URINE ORDERABLES Final Result INTERFACE SYSTEM Refer to clinic/hospital department [facility] CLIA# [id number] [address] [place] [address] documented in this encounter Visit Diagnoses Not on filedocumented in this encounter
--- OUTSIDE RECORDS SUMMARY | 2024-04-14 14:25 | XMS_ITS | Clinical Summary ---
Author Organization [facility] Address [address] [place] [address] Phone Care Team Providers Care Burrer Machine Name Role Phone Unavailable Primary Care Provider Unavailabl e Allergies No known active allergies Medications VIT/FE FUMARATE/FA ( PO) Take 1 Tab by mouth. Active ibuprofen (MOTRIN) 600 mg Oral Tab Take 1 Tab by mouth every 6 hours as needed. 30 Tab 2 12/21/2008 Active oxycodone-acetam inophen (PERCOCET) 5-325 mg Oral Tab Take 1 Tab by mouth every 4 hours as needed for Pain. 30 Tab 2 12/21/2008 Active Immunizations Immunization Administration Dates Next Due Tdap Vaccine > 7 Yo IM VFC 12/21/2008 Family History Medical History Relation Name Comments Diabetes Maternal Grandfather Other Mother kidney stones Sickle Cell Trait Mother Diabetes Paternal Grandfather Hypertension Paternal Grandmother Relation Name Status Comments Maternal Grandfather Mother Paternal Grandfather Paternal Grandmother Social History Tobacco Use Types Packs/Day Years Used Date Smoking Tobacco: Never Alcohol Use Standard Drinks/Week Comments No 0 (1 standard drink = 0.6 oz pur e alcohol) Comments No Sex and Gender Information Value Date Recorded Sex Assigned at Not on file 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 Gender Identity Not on file Sexual Orientation Not on file Last Filed Vital Signs Vital Sign Reading Time Taken Comments Blood Pressure 112/62 12/21/2008 8:46 AM CDT Pulse 76 12/21/2008 8:46 AM CDT Temperature 35.9 C (96.7 F) 12/21/2008 8:46 AM CDT Respiratory Rate 18 12/21/2008 8:46 AM CDT Oxygen Saturation - - Inhaled Oxygen Concentration - - Weight 72.6 kg (160 lb) 12/19/2008 7:38 PM CDT Height 167.6 cm (5' 6 ) 12/19/2008 7:38 PM CDT Body Mass Index 25.82 12/19/2008 7:38 PM CDT Plan of Treatment Health Maintenance Due Date Last Done Comments HEPATITIS B VACCINES (1 of 3 - 19+ 3-dose series) 06/22/1991 CERVICAL CANCER SCREENING 2002 BREAST CANCER SCREENING 2012 COLORECTAL SCREENING 2017 Colorectal Cancer Screening 2017 FIT-DNA Q 3 years 2017 FIT/FOBT Q 1 year 2017 Flex Sig/CT Colonography Q 5 years 2017 DTAP/TDAP/TD VACCINES (2 - T d or Tdap) 12/21/2018 12/21/2008 ZOSTER VACCINE (1 of 2) 2022 INFLUENZA VACCINE (#1) 2023 PNEUMOCOCCAL VACCINE 0-64 YEARS Aged Out No longer eligible based on patient's age to complete this topic Advance Directives For more information, please contact: [phone] * Full Code (Latest Code Status on File) Date Activated Date Inactivated Comments 12/19/2008 8:22 PM 12/21/2008 10:12 PM * Full Code Date Activated Date Inactivated Comments 12/19/2008 7:54 PM 12/19/2008 8:22 PM
--- OUTSIDE RECORDS SUMMARY | 2024-04-14 14:25 | XMS_ITS | Data Portability ---
Author Organization [facility] Address [address] [place] [place] [address] Assessment Encounter Date Assessment Date Assessment LastModified by Organization Details LastModified Time 09/07/2023 09/07/2023 Mammogram UTD with gyne due end of year pap smear UTD colonoscopy UTD eye exam UTD dentist is tomorrow. [email or web address] Not available 09/07/2023 09:41:20 Plan of Treatment Reminders Order Date Submit Date Provider Last Modified By Organization Details Last Modified Time Details Appointments None recorded. Lab TSH + free T4, serum 2023 024 AD[facility] Doug [facility], [address] [place], [address], 4 10:33:31 lipid panel, serum [address] [facility], [address] [place], [address], 4 10:33:30 CBC w/ auto diff [address] [facility], [address] [place], [address], 4 10:33:31 CMP, serum or plasma [address] [facility], [address] [place], [address], 4 10:33:30 vitamin B12 + folate, serum or blood 2023 024 [facility], [address] [place], [address], 4 10:21:01 HbA1c (hemoglob in A1c), blood 2023 024 NOLVAI [facility], [address] [place], [address], 4 10:33:31 Referral None recorded. Procedures None recorded. Surgeries None recorded. Imaging None recorded. Medication Orders None recorded. Patient TargetsNo targets recorded. Patient InstructionsNo instructions recorded. Reason for Referral None Reported. Results Created Date Observation Date Name Description Value Unit Range Abnormal Flag Note LastModifiedBy Organization Detail LastModifiedTime 09/23/19 24 04/29/2023 NM, hepat obili albino scan No observ ation record ed. [email or web address] [facility] [address] [place], [address], 09/23/2023 18:06:01 Result Notes None recorded. Problems Name Problem SNOMED Code Status Onset Date Resolution Date Notes Provider Name and Address Organization Details Recorded Time [facility] 5770833174041 04 Active 2023 MACO Myles Attn: Robert zamora,[address] [place], [address], [facility] 4 09:41:57 Positive screening for depression on PHQ-9 (Patient Health Questionnai re 9) 7698957849131 00 Active 2023 MACO Myles Attn: Robert zamora,[address] [place], [address], [facility] 4 09:49:34 Body mass index 25-29 - overweight 698819700 Active 2023 MACO Myles Attn: Robert zamora,[address] [place], [address], [facility] 4 10:24:38 Problem Notes None recorded. Procedures Surgical History Date Name Laterality Status Provider Name and Address Organization Details Recorded Time 0 Appendectomy completed Ritu Jabier, MA [facility] 09/07/2023 10:00:30 Imaging Results Imaging Date Name Status LastModified by Organization Details LastModified Time 04/29/2023 NM, hepatobiliary scan completed [email or web address] [facility] [address] [facility] [place], [address], 09/23/2023 18:06:01 Procedure Notes None recorded. Medical Equipment None Reported. Allergies No known drug allergies Medications Name Sig Start Date Stop Date Status Note LastModified by Organization Details LastModified Time valacyclovir 1 gram tablet Take 2 tablets every 12 hours by oral route for 1 day, for cold sore. active Not Available Not Available No t Available ciprofloxacin 500 mg tablet Take 1 tablet every 12 hours by oral route. active Not Available Not Available No t Available Vitals Date Recorded Body height Oxygen saturation Oxygen saturation in Arterial blood by Pulse oximetry Heart rate Systolic blood pressure Diastolic blood pressure Provider Name and Address Organization Details Last Updated DateTime 165.1 cm 98 % 98 % 68 /min 140 mm[Hg] 82 mm[Hg] Darcie Burciaga MA [facility] 09:25:40 Date Recorded Respiratory rate Body mass index (BMI) Body weight Systolic blood pressure Diastolic blood pressure Provider Name and Address Organization Details Last Updated DateTime 09/07/2023 18 /min 27.8 kg/m2 88317.2 1 g 130 mm[Hg] 82 mm[Hg] MACO Myles Attn: Robert zamora,[address] [facility], [place], [address], [facility] 09:40:30 Social History Question Answer Notes LastModified by Organizat ion Details LastModified Time Tobacco Smoking Status Never Smoker Darcie Burciaga MA null, [facility] 09/07/2023 09:26:48 Do You Have An Advance Directive? No mebyma Information n ot available 09/07/2023 What Is Your Level Of Alcohol Consumption? None Information not available 09/07/2023 Are You Blind Or Do You Have Difficulty Seeing? No Information n ot available 09/07/2023 What Is Your Level Of Caffeine Consumption? None Information not available 09/07/2023 In The 14 Days Before Symptom Onset, Have You Had Close Contact With A Laboratory-confirm ed COVID-19 While That Case Was Ill? No Information n ot available 09/07/2023 In The 14 Days Before Symptom Onset, Have You Had Close Contact With A Person Who Is Under Investigation For COVID-19 While That Person Was Ill? No Information not available 09/07/2023 Have You Been To An Area Known To Be High Risk For COVID-19? No Information not available 09/07/2023 Are You Deaf Or Do You Have Serious Difficulty Hearing? No Information not available 09/07/2023 What Type Of Diet Are You Following? REGULAR Information n ot available 09/07/2023 Are There Any Guns Present In Your Home? No Information not available 09/07/2023 What Was The Date Of Your Most Recent Tobacco Screening? 09/07/2023 Information not available 09/07/2023 What Is Your Relationship Status? Information not available 09/07/2023 Do You Use Your Seat Belt Or Car Seat Routinely? Yes Information not available 09/07/2023 Do You Have Smoke And Carbon Monoxide Detectors In Your Home? No Information not available 09/07/2023 Do You Use Any Illicit Or Recreational Drugs? No Information not available 09/07/2023 Do You Use Sunscreen Routinely? No Information not available 09/07/2023 Has Tobacco Cessation Counseling Been Provided? No Information not available 09/07/2023 Do You Or Have You Ever Used Any Other Forms Of Tobacco Or Nicotine? No Information not available 09/07/2023 Sex: Female Functional Status Question Answer Note LastModified by Organization D etails LastModified Time Are you able to care for yourself? Yes Information not available 09/07/2023 What is your exercise level? Moderate Information not available 09/07/2023 Mental Status None recorded. Family History Relationship Description Onset Age of this Age Resolved Age Notes LastModified by Organization Details LastModified Time Father Diabetes mellitus mebyma Not available 2023 09:59:33 Mother Hypercholest erolemia mebyma Not available 2023 09:59:40 Mother Jorge A [email or web address] Not available 0 09/07/2023 09:59:46 Medical History Condition Response Cancer Y Stroke Y Gynecological HistoryNo gynecological history recorded. Obstetrics History GPAL:G 0 P 0 0 0 0 Past Encounters Encounter ID Performer Location Encounter Start Date Encounter Closed Date Diagnosis/Indication Diagnosis SNOMED-CT Code Diagnosis ICD10 Code Diagnosis Note [id number] MACO Myles [facility] Ernst Molina [address] [place] [address] 09/07/2023 09:13:50 09/07/2023 15:01:02 Adult health examination 733978962 Z00.00 annual wellness completed Cholesterol screening 27 7561747 Z13.220 Fasting lipid panel is due Diabetes m ellitus screening 894699932 Z13.1 Annual A1c ordered Thyroid di sorder screening 277327566 Z13.29 Annual thyroid testing ordered Long-term drug therapy 598075749 Z79.899 cmp, cbc and b12, folate labs are due Perimenopausal state 903 9632033 69587 Z78.0 still having some menstrual cycles, skipping some months. Positive s creening for depression on PHQ-9 (Patient Health Questionnaire 9) 4826089882 77056 Z13.31 pt attributes to perimenopa usal. off fluoxetine but feeling stable. Body mass index 25-29 - overweight 598189169 Z68.27 BMI is 27.8 Health Concerns Section Related Observation LastModified by Organization Detai ls LastModified Time None Recorded Concern Status LastModified by Organization Details LastModified Time None Recorded Advance Directives Directive N: Payers Encounter Date Sequence Insurance Name Policy Number Policy Tate Covered Member ID Tate Member ID Guarantor Name 09/07/2023 1 [facility] [id number] Pattie Marrufo [id number] Pattie Marrufo Notes Date Note Type Note Provider Name and Address Organization Details Recorded Time 09/07/2023 text/html pt is here to re-establish with PCP. no complaints. due for labs. she is not currently taking any medications at this time. MACO Myles Attn: [address] [place], [address], [facility] 09/23/2023 08:07:36 OBGyn Episode No OBEpisode recorded.
== END 2024-04-14 14:20 | disposition home or self-care (01) ==
PROVIDERS: PCP Physician Assistant; Visit Provider Obstetrics & Gynecology
DX: Z12.31 Encounter for screening mammogram for malignant neoplasm of breast (principal); R92.8 Other abnormal and inconclusive findings on diagnostic imaging of breast
CPT/HCPCS: 77063; 77067

== ENCOUNTER 2024-05-04 11:59 | Outpatient (CLI) | payer OTHER, SELFPAY ==
--- NOTE | ~2024-05-04 | MMUS_ITS ---
EXAMINATION: MM diagnostic constance LT w manoj, US breast LT limited HISTORY: Left breast asymmetry TECHNIQUE: Additional 3-D tomosynthesis images of the left breast were performed and synthetic 2-D im ages were generated. CAD analysis was submitted and interpreted. High resolution limited left breast ultrasound was performed. COMPARISON: 04/14/2024, 04/09/2021 BREAST PARENCHYMAL COMPOSITION:Dense: The breasts are heterogeneously dense, which may obscure small masses. FINDINGS: MAMMOGRAPHIC FINDINGS: Spot compression views demonstrate persistent low-density mass is at the upper left breast measuring 6 mm and 8 mm in size, the smaller more anterior, and the larger more posterior. ULTRASOUND: At T12 o'clock position left breast, 3 cm from nipple, there is a 4 x 3 x 2 mm paravertebral cyst. Th e left breast 12:00 position near the nipple, there is an additional 3 mm probable simple cyst. At th e left breast subareolar region, there is an additional 5 mm benign-appearing cyst. IMPRESSION: Several subcentimeter breast cysts in the left breast, as detailed above. No findings which are susp icious for malignancy. No definite sonographic correlate for the probable benign-appearing mass seen posteriorly in the upper left breast. Six-month follow-up mammogram recommended of the left side to wesly pittman. BI-RADS category 3, probably benign findings. Reviewed, dictated and finalized at location . IMPRESSION: Several subcentimeter breast cysts in the left breast, as detailed above. No f indings which are suspicious for malignancy. No definite sonographic correlate for the probable benign-appearing mass seen posteriorly in the upper left breas t. Six-month follow-up mammogram recommended of the left side to reassess. BI-RADS category 3, probably benign findings.
--- OUTSIDE RECORDS SUMMARY | 2024-05-04 13:37 | XMS_ITS | Clinical Summary ---
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
--- OUTSIDE RECORDS SUMMARY | 2024-05-04 13:37 | XMS_ITS | Encounter Summary ---
Author Organization [facility] Address 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 No Chlamydia trachomatis detected. [facility] Endocervical 09/03/2008 11:1 1 AM CDT [...] COM Fin al Result Performing Organization Address [facility] Phone Number INTERFACE SYSTEM Refer to clinic/hospital department [facility] CLIA# [id number] [address] [place] [address] * BACTERIAL VAGINOSIS STAIN (09/03/2008 11:11 AM CDT) FINAL REPORT Cells: epithelial cells > WBC's Elis Score = 0 Interpretation : Consistent with normal vaginal estrellita [facility] Vaginal 09/03/2008 11:1 1 AM CDT 09/03/2008 11:24 AM CDT Kaden Yeager MD MICROBIOLOGY - GENERAL ORDERAB LES Final Result Performing Organization Address [facility] Phone Number INTERFACE SYSTEM Refer to clinic/hospital department [facility] CLIA# [id number] [address] [place] [address] * URINALYSIS (09/03/2008 10:03 AM CDT) LEUKOCYTE ESTERASE UA Negative Negative [facility] SPECIFIC GRAVITY UA 1.007 1.001 - 1.035 [facility] BLOOD UA Negative Negative [facility] GLUCOSE UA Negative Negative [facility] COLOR UA Colorless [facility] NITRITE UA Negative Negative [facility] UROBILINOGEN UA <1 <=1 mg/dL [facility] PH UA 7.5 5.0 - 8.0 [facility] KETONES UA Negative Negative [facility] CLARITY UA Clear Clear [facility] PROTEIN UA Negative Negative [facility] BILIRUBIN UA Negative Negative [facility] 09/03/2008 10:0 3 AM CDT 09/03/2008 10:10 AM CDT us Kaden Yeager MD URINE ORDERABLES Final Result INTERFACE SYSTEM Refer to clinic/hospital department [facility] CLIA# [id number] [address] [place] [address] documented in this encounter Visit Diagnoses Not on filedocumented in this encounter
--- OUTSIDE RECORDS SUMMARY | 2024-05-04 13:37 | XMS_ITS | Data Portability ---
Author Organization [facility] Address [address] [place] [address] Assessment Encounter Date Assessment Date Assessment LastModified [...] TSH + free T4, serum 2023 024 [facility] Doug [facility], [address] [facility] [place], [address], 4 10:33:31 lipid panel, serum 2023 024 [facility], [address] [facility] [place], [address], 4 10:33:30 CBC w/ auto diff 2023 024 [facility], [address] [facility] [place], [address], 4 10:33:31 CMP, serum or plasma 2023 024 [facility], [address] [facility] [place], [address], 4 10:33:30 vitamin B12 + folate, serum or blood 2023 024 [facility], [address] [facility] [place], [address], 4 10:21:01 HbA1c (hemoglob in A1c), blood 2023 024 NOLVIA [facility], [address] [facility] [place], [address], 4 10:33:31 Referral None recorded. Procedures None recorded. Surgeries None recorded. Imaging None recorded. Medication Orders None recorded. Patient TargetsNo targets recorded. Patient InstructionsNo instructions recorded. Reason for Referral None Reported. Results Created Date Observation Date Name Description Value Unit Range Abnormal Flag Note LastModifiedBy Organization Detail LastModifiedTime 09/23/1904/29/2023 NM, hepat obili albino scan No observ ation record ed. [email or web address] [facility] [address] [facility] [place], [address], 09/23/2023 18:06:01 04/14/19 25 04/14/2024 MAMMO , scree dewey, digit al, bilat eral No observ ation record ed. [address] [facility] [place], [address], 04/18/2024 16:02:23 04/20/19 25 04/14/2024 MAMMO , scree dewey, digit al, bilat eral No observ ation record ed. [address] [place] [address], [address], 04/26/2024 13:21:34 Result Notes None recorded. Problems Name Problem SNOMED Code Status Onset Date Resolution Date Notes Provider Name and Address Organization Details Recorded Time [facility] 6224905753139 04 Active 2023 MACO Myles Attn: Robert zamora,[address] [facility], [place], [address], [facility] 4 09:41:57 Positive screening for depression on PHQ-9 (Patient Health Questionnai re 9) 1396558506175 00 Active 2023 MACO Myles Attn: Robert zamora,[address] [facility], [place], [address], [facility] 4 09:49:34 Body mass index 25-29 - overweight 942626267 Active 2023 MACO Myles Attn: Robert zamora,[address] [facility], [place], [address], [facility] 4 10:24:38 Problem Notes None recorded. Procedures Surgical History Date Name Laterality Status Provider Name and Address Organization Details Recorded Time 0 Appendectomy completed Ritu Eugene MA [facility] 09/07/2023 10:00:30 Imaging Results Imaging Date Name Status LastModified by Organization Details LastModified Time 04/29/2023 NM, hepatobiliary scan completed [email or web address] [address] [place], [address], 09/23/2023 18:06:01 04/14/2024 MAMMO, screening, digital, bilateral completed [address], [address], 04/18/2024 16:02:23 04/14/2024 MAMMO, screening, digital, bilateral completed [address], [address], 04/26/2024 13:21:34 Procedure Notes None recorded. Medical Equipment None [...] 140 mm[Hg] 82 mm[Hg] Darcie Burciaga MA [facility] 4 09:25:40 Date Recorded Respiratory rate Body mass index (BMI) Body weight Systolic blood pressure Diastolic blood pressure Provider Name and Address Organization Details Last Updated DateTime 09/07/2023 18 /min 27.8 kg/m2 18489.2 1 g 130 mm[Hg] 82 mm[Hg] MACO Myles Attn: Robert zamora,[address] [facility], [place], [address], [facility] 4 09:40:30 Social History Question Answer Notes LastModified by Organizat ion Details LastModified Time Tobacco Smoking Status Never Smoker Darcie Burciaga MA [facility], [facility] 09/07/2023 09:26:48 Do You Have An Advance [...] erolemia mebyma Not available 2023 09:59:40 Mother Migraine mebyma Not available 0 09/07/2023 09:59:46 Medical History Condition Response Cancer Y Stroke Y Gynecological HistoryNo gynecological history recorded. Obstetrics History GPAL:G 0 P 0 0 0 0 Past Encounters Encounter ID Performer Location Encounter Start Date Encounter Closed Date Diagnosis/Indication Diagnosis SNOMED-CT Code Diagnosis ICD10 Code Diagnosis Note [id number] MACO Myles [facility] [place] [address] [place] [address] 09/07/2023 09:13:50 09/07/2023 15:01:02 Adult health examination 300088266 Z00.00 annual wellness completed Cholesterol screening 27 8921478 Z13.220 Fasting lipid panel is due Diabetes m ellitus screening 345615918 Z13.1 Annual A1c ordered Thyroid di sorder screening 825451322 Z13.29 Annual thyroid testing ordered Long-term drug therapy 348367590 Z79.899 cmp, cbc and b12, folate labs are due Perimenopausal state 894 3488590 33072 Z78.0 still having some menstrual cycles, skipping some months. Positive s creening for depression on PHQ-9 (Patient Health Questionnaire 9) 4068802254 81255 Z13.31 pt attributes to perimenopa usal. off fluoxetine but feeling stable. Body mass index 25-29 - overweight 377983589 Z68.27 BMI is 27.8 Health Concerns Section Related Observation LastModified by Organization Detai ls LastModified Time None Recorded Concern Status LastModified by Organization Details LastModified Time None Recorded Advance Directives Directive N: Payers Encounter Date Sequence Insurance Name Policy Number Policy Tate Covered Member ID Tate Member ID Guarantor Name 09/07/2023 1 [facility] [id number] Pattie Marrufo [id number] Pattie Marrufo Notes Date Note Type Note Provider Name and Address Organization Details Recorded Time 09/07/2023 text/html pt is here to re-establish with PCP. no complaints. due for labs. she is not currently taking any medications at this time. MACO Myles Attn: Accounting[address] [place], [address], [facility] 09/23/2023 08:07:36 OBGyn Episode No OBEpisode recorded.
--- OUTSIDE RECORDS SUMMARY | 2024-05-04 13:37 | XMS_ITS | Clinical Summary ---
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 Gender Identity Not on file Sexual Orientation [...] DIGITAL MAMMOGRAPHY Routine 03/28/2014 3 :10 PM FUSELAGE FRAMER from Last 3 Months or Most Recently Relevant to Health Maintenance Results * DIGITAL MAMMOGRAPHY (03/28/2014 3:10 PM FUSELAGE FRAMER) Anatomical Region Laterality Modality Mammography 03/28/2014 3:10 PM FUSELAGE FRAMER Narrative 04/17/2014 10:24 PM FUSELAGE FRAMER YC Diag Mamm Bi Acc#: [id number] DIAG MAMM W ADAIR BI Acc#: [id number] DATE OF EXAM: Mar 28 2014 CLINICAL [...] technology was employed plus computer-aided detection software (Kryptiq) was utilized in interpretation of these images. This facility utilizes a reminder system to notify patients of yearly mammograms. IMPRESSION: 1. NO FINDINGS SUSPICIOUS FOR MALIGNANCY. 2. IF PRIOR MAMMOGRAM ([facility] 02/2013?) IS OBTAINED FOR COMPARISON, AN ADDENDUM WILL FOLLOW. BI-RADS CATEGORY 2 - BENIGN FINDINGS ADDENDUM: 04/17/14 / Efforts to obtain prior mammograms on this patient have been exhausted. No additional imaging is necessary at this time. Recommend rescreening in one year. Interpreting Physician: DR KARI ROBLES M.D. Read on: Mar 28 2014 3:57P Transcribed by: [facility] On: Mar 28 2014 3:57P Approved Electronically by: TRAVIS Carbone, DR PIERCE on: Apr 17 2014 10:24P Attending: MARY ELLEN BELTRAN Requesting: MARY ELLEN BELTRAN Requesting Fax: -- Attending Fax: -- Attending ID: [id number] Requesting ID: [id number] Report To 1 ID: [id number] Report To 1 Name: MARY ELLEN BELTRAN Report To 1 FAX: -- NextGen Order #: Procedure Note Provider, MD Magui - 06/20/2016 YC Diag Mamm Bi Acc#: [id number] DIAG MAMM W ADAIR BI Acc#: [id number] DATE OF EXAM: Mar 28 2014 CLINICAL [...] interpretation of these images. This facility utilizes [employer] system to notify patients of yearly mammograms. IMPRESSION: 1. NO FINDINGS SUSPICIOUS FOR MALIGNANCY. 2. IF PRIOR MAMMOGRAM ([facility] 02/2013?) IS OBTAINED FORCOMPARISON, AN ADDENDUM [...] Fax: -- Attending Fax: -- Attending ID: [id number] Requesting ID: [id number] Report To 1 ID: [id number] Report To 1 Name: MARY ELLEN BELTRAN Report To 1 FAX: -- NextGen Order #: us Historical Provider MD REID MAMMO PROCEDURES Michelle l Result from Last 3 Months or Most Recently Relevant to Health Maintenance Insurance [facility] CHOICE PLUS [facility] H[facility]/PPO Address: [place] [phone] Care Teams Director Of Institutional Sales Relationship Specialty Start Date End Date Shyanne Rodriguez PA PCP - General Physician Pricing Specialist 05/21/22
--- OUTSIDE RECORDS SUMMARY | 2024-05-04 13:37 | XMS_ITS | Referral Summary ---
Author Organization [facility] Address [address] [place] [address] Care Team Providers Care Fisher Diving Name Role Phone Jennifer Shyanne DEWEY Primary [...] on file Legal Sex Female 5:46 PM LEAD SOFTWARE ENGINEER Gender Identity Not on file Sexual Orientation [...] DIGITAL MAMMOGRAPHY Routine 03/28/2014 3 :10 PM LEAD SOFTWARE ENGINEER from Last 3 Months or Most Recently Relevant to Health Maintenance Results * DIGITAL MAMMOGRAPHY (03/28/2014 3:10 PM LEAD SOFTWARE ENGINEER) Anatomical Region Laterality Modality Mammography 03/28/2014 3:10 PM LEAD SOFTWARE ENGINEER Narrative 04/17/2014 10:24 PM LEAD SOFTWARE ENGINEER YC Diag Mamm Bi Acc#: [id number] DIAG MAMM W ADAIR BI Acc#: [id number] DATE OF EXAM: Mar 28 2014 CLINICAL [...] SUSPICIOUS FOR MALIGNANCY. 2. IF PRIOR MAMMOGRAM ([facility] 02/2013?) IS OBTAINED FOR COMPARISON, AN ADDENDUM WILL FOLLOW. BI-RADS CATEGORY 2 - BENIGN FINDINGS ADDENDUM: 04/17/14 CS/ Efforts to obtain prior mammograms on this patient have been exhausted. No additional imaging is necessary at this time. Recommend rescreening in one year. Interpreting Physician: DR KARI ROBLES M.D. Read on: Mar 28 2014 3:57P Transcribed by: [facility] On: Mar 28 2014 3:57P Approved Electronically by: TRAVIS Carbone, DR PIERCE on: Apr 17 2014 10:24P Attending: MARY ELLEN BELTRAN Requesting: MARY ELLEN BELTRAN Requesting Fax: -- Attending Fax: -- Attending ID: [id number] Requesting ID: [id number] Report To 1 ID: [id number] Report To 1 Name: MARY ELLEN BELTRAN Report To 1 FAX: -- NextGen Order #: Procedure Note Provider, MD Magui - 06/20/2016 YC Diag Mamm Bi Acc#: [id number] DIAG MAMM W ADAIR BI Acc#: [id number] DATE OF EXAM: Mar 28 2014 CLINICAL [...] interpretation of these images. This facility utilizes [employer] system to notify patients of yearly mammograms. IMPRESSION: 1. NO FINDINGS SUSPICIOUS FOR MALIGNANCY. 2. IF PRIOR MAMMOGRAM ([facility] 02/2013?) IS OBTAINED FORCOMPARISON, AN ADDENDUM WILL FOLLOW. BI-RADS CATEGORY 2 - BENIGN FINDINGS ADDENDUM: 04/17/14 CS/VM Efforts to obtain prior mammograms on thispatient have been exhausted. No additional imaging is necessary at thistime. Recommend rescreening in one year. Interpreting Physician: DR KARI ROBLES M.D. Read on: Mar 28 20143:57P Transcribed by: [facility] On: Mar 28 2014 3:57P Approved Electronically by: TRAVIS Carbone, DR PIERCE on: Apr 17 201410:24P Attending: MARY ELLEN BELTRAN Requesting: MARY ELLEN BELTRAN Requesting Fax: -- Attending Fax: -- Attending ID: [id number] Requesting ID: [id number] Report To 1 ID: [id number] Report To 1 Name: MARY ELLEN BELTRAN Report To 1 FAX: -- NextGen Order #: Historical Provider MD REID MAMMO PROCEDURES Michelle l Result from Last 3 Months or Most Recently Relevant to Health Maintenance Insurance [facility] H[facility]/PPO Address: [facility] [address] [place] [address] [id number] Care Teams Fisher Diving Relationship Specialty Start Date End Date Shyanne Rodriguez PA PCP - General Physician Gas Welder 05/21/22
--- OUTSIDE RECORDS SUMMARY | 2024-05-04 13:38 | XMS_ITS | Data Portability ---
Author Organization [place] [employer] [place] [employer], Main Office Address [address] [place] [address] Assessment No assessment recorded. Plan of Treatment Reminders Order Date Submit Date Provider Last Modified By Organization Details Last Modified Time Details Appointments None recorded. Lab TSH + free T4, serum 2023 024 [facility], [address] [place], [address], 4 11:54:09 lipid panel, serum 2023 024 [facility], [address] [place], [address], 4 11:54:09 CMP, serum or plasma 2023 024 [facility], [address] [place], [address], 4 11:54:09 CBC w/ auto diff 2023 024 [facility], [address] [place], [address], 4 16:32:52 HbA1c (hemoglobin A1c), blood 2023 024 [facility], [address] [place], [address], 4 16:32:53 urinalysis, reflex culture 2023 024 [facility], [address] [place], [address], 4 15:59:52 urinalysis, complete 2022 023 [facility] Not available 3 10:56:16 culture, urine 2022 023 [email or web address] Not available 3 08:54:39 CBC w/ auto diff 2022 023 [facility] Not available 3 10:56:16 CMP, serum or plasma 2022 023 [facility] Not available 3 10:56:16 Referral None recorded. Procedures None recorded. Surgeries None recorded. Imaging NM, hepatobilia ry scan 2023 024 [email or web address] [facility] Scheduling, [address] [facility] [place], [address], 4 11:09:59 XR, kidney + ureter + bladder 2022 023 [facility] Not available 3 17:34:02 US, gallbladder - Per [facility] no auth is required ev[employer]ore. 2022 [...] (PROC ) No observ ation record ed. [id number] [facility] Scheduling [address] [facility] [place], [address], 04/23/2022 08:51:52 04/12/19 22 04/09/2021 US, pelvi s No observ ation record ed. [id number] Not Available 04/23/2022 08:51:52 04/12/19 22 04/09/2021 MAMMO , scree dewey, digit al, bilat eral No observ ation record ed. [id number] Not Available 04/23/2022 08:51:52 06/13/19 22 06/11/2021 US, nura castañeda r No observ ation record ed. [id number] [facility] Scheduling [address] [facility] , [place], [address], 04/23/2022 08:51:52 07/18/19 22 07/17/2021 colon oscop y nakul bennettg (PROC ) No observ ation record ed. [id number] Not Available 04/23/2022 08:51:52 05/14/19 23 04/22/2022 MAMMO , scree dewey, digit al, bilat eral No observ ation record ed. BARCODE Not Available 2022 16:15:38 07/03/19 23 07/02/2022 US, nura castañeda r No observ ation record ed. [email or web address] [facility] [address] [place], [address], 07/08/2022 15:34:36 07/03/19 23 07/02/2022 XR, kidne y + urete r + bladd er No observ ation record ed. [email or web address] [facility] [address] [place], [address], 07/08/2022 15:34:21 09/11/19 23 08/20/2022 US, joshuaas t No observ ation record ed. [email or web address] [facility] [address] [place], [address], 09/10/2022 15:25:49 Result Notes None recorded. 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 Procedures Surgical History Date Name Laterality Status Provider Name and Address Organization Details Recorded Time 5 Appendectomy completed Not Available [facility] 023 08:44:05 Imaging Results Imaging Date Name Status LastModified by Organiz ation Details LastModified Time 06/11/2021 US, gallbladder completed MIGRATION.03 [id number] [id number] [facility] Scheduling [address] [facility] [place], [address], 04/23/2022 08:51:52 07/17/2021 colonoscopy screening (PROC) completed [id number] Information not available 04/23/2022 08:51:52 11/15/2020 nerve conduction study/EMG, upper extremity (PROC) completed [id number] [facility] Scheduling [address] [facility], [address], 04/23/2022 08:51:52 04/09/2021 US, pelvis completed MIGRATION.44546 3 0026 Information not available 04/23/2022 08:51:52 04/09/2021 MAMMO, screening, digital, bilateral completed [id number].[id number] 1864 Information not available 04/23/2022 08:51:52 04/22/2022 MAMMO, screening, digital, bilateral completed BARCODE Information not available 05/13/2022 16:15:38 07/02/2022 US, gallbladder completed [email or web address] [facility] [address] [place], [address], 07/08/2022 15:34:36 07/02/2022 XR, kidney + ureter + bladder completed [email or web address] [facility] [address] [place], [address], 07/08/2022 15:34:21 08/20/2022 US, breast completed [email or web address] [facility] [address] [place], [address], 09/10/2022 15:25:49 Procedure Notes None recorded. Medical [...] mL by intraderm al route. 03/11 completed [facility]#[id number] [phone] [phone] [phone] Not Available Not Available [...] Date Recorded Body mass index (BMI) Body height Oxygen saturation Oxygen saturation in Arterial blood by Pulse oximetry Heart rate Body temperature Body weight Systolic blood pressure Diastolic blood pressure Provider Name and Address Organization Details Last Updated DateTime 1 28.2 kg/m2 162.56 cm 99 % 99 % 84 /min 97.7 [degF] 30329.8 7 g 122 mm[Hg] 80 mm[Hg] Not Available [facility] 3 08:46:34 Date Recorded Body mass index (BMI) Body height Oxygen saturation Oxygen saturation in Arterial blood by Pulse oximetry Heart rate Respiratory rate Body temperature Body weight Systolic blood pressure Diastolic blood pressure Provider Name and Address Organization Details Last Updated DateTime 2 28.2 kg/m2 162.56 cm 98 % 98 % 73 /min 16 /min 97.4 [degF] 09427.1 5 g 138 mm[Hg] 88 mm[Hg] Not Available [facility] 3 08:46:34 Date Recorded Body mass index (BMI) Body height Oxygen saturation Oxygen saturation in Arterial blood by Pulse oximetry Heart rate Respiratory rate Body temperature Body weight Systolic blood pressure Diastolic blood pressure Provider Name and Address Organization Details Last Updated DateTime 2 30.2 kg/m2 162.56 cm 98 % 98 % 80 /min 16 /min 97.7 [degF] 50568.2 6 g 122 mm[Hg] 80 mm[Hg] Not Available [facility] 3 08:46:34 Date Recorded Body height Body temperature Body mass index (BMI) Body weight Respiratory rate Oxygen saturation Oxygen saturation in Arterial blood by Pulse oximetry Heart rate Systolic blood pressure Diastolic blood pressure Provider Name and Address Organization Details Last Updated DateTime 3 162.56 cm 97.8 [degF] 27.3 kg/m2 63993.1 9 g 16 /min 98 % 98 % 72 /min 120 mm[Hg] 80 mm[Hg] SCOOBY Martin [place] [employer] [facility] 3 10:36:24 Date Recorded Body height Provider Name an d Address Organization Details Last Updated DateTime 03/02/2023 162.56 cm SCOOBY Martin [employer] 03/02/2023 16:44:25 Date Recorded Body mass index (BMI) Body weight Respiratory rate Oxygen saturation Oxygen saturation in Arterial blood by Pulse oximetry Heart rate Systolic blood pressure Diastolic blood pressure Provider Name and Address Organization Details Last Updated DateTime 4 28.3 kg/m2 69079.7 4 g 16 /min 99 % 99 % 66 /min 120 mm[Hg] 80 mm[Hg] MACO Myles [address] [facility], [facility] [address], [place], [address], [employer] 4 17:37:43 Social History Question Answer Notes LastModified by Organizat ion Details LastModified Time Tobacco Smoking Status Never Smoker Not Available [facility] 04/23/2022 08:43:58 Do You Have An Advance Directive? No MIGRATION.[id number] 5175 Information not available 04/23/2022 What Is Your Level Of Alcohol Consumption? None MIGRATION.815463 9389 Information not available 04/23/2022 What Is Your Level Of Caffeine Consumption? Occasional MIGRATION.635442 9191 Information not available 04/23/2022 In The 14 Days Before Symptom Onset, Have You Had Close Contact With A Laboratory-confir med COVID-19 While That Case Was Ill? No MIGRATION.896128 4832 Information not available 04/23/2022 In The 14 Days Before Symptom Onset, Have You Had Close Contact With A Person Who Is Under Investigation For COVID-19 While That Person Was Ill? No MIGRATION.198040 7330 Information not available 04/23/2022 Are You Currently Employed? No [email or web address] Information not available 07/01/2022 What Type Of Diet Are You Following? REGULAR MIGRATION.163088 5905 Information not available 04/23/2022 What Is The Highest Grade Or Level Of School You Have Completed Or The Highest Degree You Have Received? 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 No MIGRATION.102764 8191 Information not available 04/23/2022 Do You Have A Medical Power Of Architecture Drafter? No MIGRATION.891920 1330 Information not available 04/23/2022 What Is Your Relationship Status? MIGRATION.206660 4268 Information not available 04/23/2022 Do You Use Your Seat Belt Or Car Seat Routinely? Yes MIGRATION.986848 4396 Information not available 04/23/2022 Do You Have Smoke And Carbon Monoxide Detectors In Your Home? Yes MIGRATION.425728 0024 Information not available 04/23/2022 Are You Passively Exposed To Smoke? No MIGRATION.662900 1199 Information not available 04/23/2022 Do You Feel Stressed (tense, Restless, Nervous, Or Anxious, Or Unable To Sleep At Night)? [id number] MIGRATION.950518 5060 Information not available 04/23/2022 Do You Use Any Illicit Or Recreational Drugs? No MIGRATION.305930 9527 Information not available 04/23/2022 Do You Use Sunscreen Routinely? Yes MIGRATION.687852 1606 Information not available 04/23/2022 Has Tobacco Cessation Counseling Been Provided? No MIGRATION.619615 1080 Information not available 04/23/2022 Have You Recently Traveled Abroad? No MIGRATION.070986 7726 Information not available 04/23/2022 Do You Have Any Dietary Restrictions? No MIGRATION.581848 9287 Information not available 04/23/2022 Do You Or Have You Ever Used Any Other Forms Of Tobacco Or Nicotine? No MIGRATION.301888 2279 Information not available 04/23/2022 Sex: Unknown Functional Status Question Answer Note LastModified by Organizat ion Details LastModified Time What is your exercise level? Occasional [id number].[id number] 26 Information not available 04/23/2022 Mental Status None recorded. Family History Relationship Description Onset Age of this Age Resolved Age Notes LastModified by Organization Details LastModified Time Father Diabetes mellitus 79 MIGRATION.849 [id number] Not available 04/23/2022 08:44:06 Mother Hypertriglyc eridemia MIGRATION.063 [id number] Not available 04/23/2022 08:44:06 Medical History Condition Response HEADACHES/MIGRAINES Y HEARTBURN / REFLUX Y TUBERCULOSIS Y Gynecological History Statement/Question Response Date of Last Mammogram 03/11/2018 Obstetrics History GPAL:G 2 P 0 0 0 2 Type Value Living 2 Total 2 Past Encounters Encounter ID Performer Location Encounter Start Date Encounter Closed Date Diagnosis/Indication Diagnosis SNOMED-CT Code Diagnosis ICD10 Code Diagnosis Note [id number] [facility] [address] [place] [address] 10/19/2020 00:00:00 10/21/2020 11:09:52 [id number] [facility] [address] [place] [address] 11/26/2020 00:00:00 12/20/2020 23:15:47 [id number] [facility] [address] [place] [address] 04/29/2021 00:00:00 05/23/2021 17:17:17 [id number] [facility] [address] [place] [address] 01/27/2022 00:00:00 02/21/2022 01:18:09 [id number] MACO Myles [facility] [address] [place] [address] 07/02/2022 09:44:54 07/02/2022 10:59:38 Right upper quadrant pain 240755537 R10.11 refer for STAT gallbladde r u/s and CBC and CMP. Right flank pain 1877455 09 R10.9 r/o renal stone. check KUB xray also and urine w/cx [id number] MACO Myles [facility] [address] [place] [address] 03/02/2023 16:41:33 03/02/2023 17:29:31 Adult health examination 288391543 Z00.01 well exam completed. Right uppe r quadrant pain 164956529 R10.11 proceed with NM hida scan as ordered prior. check UA w/cx Cholesterol screening 27 1088737 Z13.220 fasting lipids due Diabetes m ellitus screening 030647679 Z13.1 a1c screening due Thyroid di sorder screening 771012418 Z13.29 thyroid panel due Long-term drug therapy 114047187 Z79.899 CBC and CMP due Gastroesop hageal reflux disease 400252412 K21.9 taking PRN pantoprazo le 40mg daily therapy. Health Concerns Section Related Observation LastModified by Organization Detai ls LastModified Time None Recorded Concern Status LastModified by Organization Details LastModified Time None Recorded Advance Directives Directive N: Payers Encounter Date Sequence Insurance Name Policy Number Policy Tate Covered Member ID Tate Member ID Guarantor Name 07/02/2022 1 [facility] [id number] Pattie Marrufo [id number] Pattie Marrufo 03/02/2023 1 [facility] [id number] Blelissy Richey Niru [id number] Pattie Marrufo Notes Date Note Type Note [...] no restlessness; no sleep disturbances Not Available [facility] 12/20/2020 23:15:47 04/29/2021 text/html Reflux/GERDRepor sonam bypatient.Symptomsasy [...] 5 years ago as well. Not Available [employer] 05/23/2021 17:17:17 01/27/2022 text/html Reflux/GERDRepor sonam bypatient.Symptomsasy [...] no early satiety; no halitosis Not Available [employer] 02/21/2022 01:18:09 07/02/2022 text/html Abdominal PainReported bypatient.Location:ra diating (to R side of back); Mid R side of abd Quality:pain;sharp; burning Severity:moderate; pain level 6/10 Duration:intermittent ; started: (4 days) Onset/Timing:better Modifying Factors:eating (makes it worse) Associated Symptoms:no fever; no chills; no blood in the urine; no heartburn; no shortness of breath;nausea; having more BM but not diarrhea Other:denies possible MACO Myles [address] [place] [address], [facility] [address], [place], [address], [employer] 07/02/2022 11:16:44 03/02/2023 text/html Reflux/GERDRepor sonam bypatient.Severity:sa me Duration:present 5 or more years Alleviating Factors:medication WellnessStates she never got HIDA scan. I am closing order and if needed she will need new order. MACO Myles [address] [facility], [facility] [address], [place], [address], [facility] [employer] 03/03/2023 19:02:11 OBGyn Episode No OBEpisode recorded.
--- OUTSIDE RECORDS SUMMARY | 2024-05-04 13:38 | XMS_ITS | Clinical Summary ---
Author Organization [facility] Address [address] [place] [address] Phone Care Team Providers Care Asphalt Paver Operator Name Role Phone Shyanne Rodriguez Primary Care Provider Social History Tobacco Use Types Packs/Day Years [...] patient's age to complete this topic Insurance [facility] Care Teams Asphalt Paver Operator Relationship Specialty Start Date End Date Shyanne Rodriguez PA PCP - General Family Medicine 07/03/22
== END 2024-05-04 12:00 | disposition home or self-care (01) ==
LOC: ANHIMG 12:05
PROVIDERS: PCP Physician Assistant; Visit Provider Obstetrics & Gynecology
DX: N64.89 Other specified disorders of breast (principal); R92.8 Other abnormal and inconclusive findings on diagnostic imaging of breast
CPT/HCPCS: 76642; 77061; 77065; G0279

== ENCOUNTER 2024-10-31 12:44 | Outpatient (CLI) | payer OTHER, SELFPAY ==
--- NOTE | ~2024-10-31 | MM_ITS ---
EXAMINATION: MM diagnostic constance LT w manoj INDICATION: 54-year old female; 6 month follow up of probable benign appearing mass with no sonographic correlate in the upper left breast centered at posterior depth initially evaluated on 05/04/2024. COMPARISON: 05/04/2024 through 03/10/2017. TECHNIQUE: Left breast Digital breast tomosynthesis CC and MLO views and spot compression views of the left breast were obtained with computer-aided detection to assist in interpretation of the study. FINDINGS: The breasts are heterogeneously dense, which may obscure small masses. The circumscribed mass of concern in the upper left breast centered at posterior depth reidentified is Unchanged. No other focal dominant mass, architectural distortion, or suspicious microcalcifications are identified. IMPRESSION: Probably benign mass in the upper left breast have demonstrated approximately 6 months stability since initial discovery. RECOMMEND: Diagnostic bilateral mammogram in 6 months. BI-RADS 3, PROBABLY BENIGN Reviewed, dictated and finalized at location B. IMPRESSION: Probably benign mass in the upper left breast have demonstrated ap proximately 6 months stability since initial discovery. RECOMMEND: Diagnostic bilateral mammogram in 6 months. BI-RADS 3, PROBABLY BENIGN
--- OUTSIDE RECORDS SUMMARY | 2024-10-31 12:53 | XMS_ITS | Encounter Summary ---
Author Organization [facility] Address [address] [place] [address] Care Team Providers Care Irrigation Foreman Name Role Phone Unavailable Primary Care Provider Unavailabl e Encounter Details Date Type Department Care Team (Late st Contact Info) Description 09/03/2008 Inpatient Historical HIS PATIENT IN A BED Kaden Yeager MD [address] [place] [id number] Social History Tobacco Use Types Packs/Day Years Used Date Smoking Tobacco: Never Assessed Comments Unknown Sex and Gender Information Value Date Recorded Sex Assigned at Not on file Legal Sex Female 5:45 AM PRODUCTION CONSULTANT Gender Identity Not on file Sexual Orientation [...] Neisseria gonorrhoeae detected. No Chlamydia trachomatis detected. [facility] Endocervical 09/03/2008 11:1 1 AM CDT [...] COM Fin al Result Performing Organization Address [facility] Phone Number INTERFACE SYSTEM Refer to clinic/hospital department [facility] CLIA# [id number] [address] [place] [address] * BACTERIAL VAGINOSIS STAIN (09/03/2008 11:11 AM CDT) FINAL REPORT Cells: epithelial cells > WBC's Elis Score = 0 Interpretation : Consistent with normal vaginal estrellita [facility] Vaginal 09/03/2008 11:1 1 AM CDT 09/03/2008 11:24 AM CDT Kaden Yeager MD MICROBIOLOGY - GENERAL ORDERAB LES Final Result Performing Organization Address [facility] Phone Number INTERFACE SYSTEM Refer to clinic/hospital department [facility] CLIA# [id number] [address] [place] [address] * URINALYSIS (09/03/2008 10:03 AM CDT) LEUKOCYTE ESTERASE UA Negative Negative [facility] SPECIFIC GRAVITY UA 1.007 1.001 - 1.035 [facility] BLOOD UA Negative Negative [facility] GLUCOSE UA Negative Negative [facility] COLOR UA Colorless [facility] NITRITE UA Negative Negative [facility] UROBILINOGEN UA <1 <=1 mg/dL [facility] PH UA 7.5 5.0 - 8.0 [facility] KETONES UA Negative Negative [facility] CLARITY UA Clear Clear [facility] PROTEIN UA Negative Negative [facility] BILIRUBIN UA Negative Negative [facility] 09/03/2008 10:0 3 AM CDT 09/03/2008 10:10 AM CDT us Kaden Yeager MD URINE ORDERABLES Final Result INTERFACE SYSTEM Refer to clinic/hospital department [facility] CLIA# [id number] [address] [place] [address] documented in this encounter Visit Diagnoses Not on filedocumented in this encounter
--- OUTSIDE RECORDS SUMMARY | 2024-10-31 12:53 | XMS_ITS | Clinical Summary ---
Author Organization [facility] Address [address] [place] [address] Care Team Providers Care Residential Program Director Name Role Phone Jennifer Shyanne DEWEY Primary Care Pr ovider Allergies No known active allergies Medications cephalexin (KEFLEX) 500 mg capsule take 1 capsule by oral route every 8 hours 30 0 03/27/2016 Active Active Problems Problem Noted Date Diagnosed Date Migraine 06/04/2015 Overview (05/29/2016): Migraines Gastroesophageal reflux disease 03/02/2014 Overview (05/29/2016): GERD Encounters Date Type Department Care Team Description 10/25/2024 6:55 AM CDT Lab [address] [id number] 09/05/2024 10:22 AM CDT - 09/05/2024 11:59 PM CDT Hospital Encounter [facility] [address] [place] [address] Localized enlarged lymph nodes Discharge Disposition: Discharge to home or self care 09/02/[address] [address] Moises Jones from Last 3 Months Immunizations Immunization Administration Dates Next Due Influenza, Trivalent, Recomb inant, Egg Free, Preservative Free, Antibiotic Free, IM (FLUBLOK) 03/02/2014 Surgical History Surgery Date Site/Laterality Comments OTHER SURGICAL HISTORY Dr. 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 Gender Identity Not on file Sexual Orientation [...] 10:51 AM CDT Height 165.1 cm (5' 5) 10/28/2023 10:51 AM CDT Body Mass Index [...] (1 of 2) 2022 Influenza Vaccine (#1) 2024 03/02/2014 Pneumococcal vaccine <65 Aged Out No longer eligible based on patient's age to complete this topic Procedures Procedure Name Priority Date/Time Associated Diagnosis Comments EGFR Routine 10/25/2024 7:07 AM CDT DIFFERENTIAL AUTO Routine 10/25/2024 7:0 7 AM CDT FOLATE Routine 10/25/2024 7:07 AM CDT VITAMIN B12 Routine 10/25/2024 7:07 AM CDT COMPREHENSIVE METABOLIC PANEL Routine 10/25/2024 7:07 AM CDT CBC WITH AUTO DIFFERENTIAL Routine 10/25/2024 7:07 AM CDT T4, FREE Routine 10/25/2024 7:07 AM CDT TSH Routine 10/25/2024 7:07 AM CDT HEMOGLOBIN A1C Routine 10/25/2024 7:07 AM CDT LIPID PANEL Routine 10/25/2024 7:[address] SOFT TISSUE NECK W CONTRAST Schedule Routine, Read Routine (OP Routine) 09/05/2024 11:22 AM CDT Localized enlarged lymph nodes DIGITAL MAMMOGRAPHY Routine 03/28/2014 3 :10 PM TOOL MAINTENANCE WORKER from Last 3 Months or Most Recently Relevant to Health Maintenance Results * eGFR (10/25/2024 7:07 AM CDT) eGFR >90 >=60 mL/min/1. 73 m2 Comment: Interpretive Data Reference Interval Normal >/= 90 mL/min/1.73m2 Mildly decreased* 60 - 89 mL/min/1.73m2 Mildly to moderately decreased 45 - 59 mL/min/1.73m2 Moderately to severely decreased 30 - 44 mL/min/1.73m2 Severely decreased 15 - 29 mL/min/1.73m2 Kidney Failure < 15 mL/min/1.73m2 *Relative to young adult level Estimated glomerular filtration rate is determined by the 2020 CKD-EPI equation recommended by the National Kidney Foundation (A Unifying Approach to GFR Estimation: Recommendations of the NKF-ASK Task Force on Reassessing the Inclusion of Race in Diagnosing Kidney Disease, JASN 2020). The CKD-EPI equation should not be used for patients with unstable renal function and has not been validated in children and those over 70. Current interpretive data was last reviewed 2020. Blood 10/25/2024 7:07 AM CDT 10/25/2024 7:49 AM CDT us Shyanne DEWEY LAB BLOOD ORDERA BLES Final Result [facility] ([place]) 1 [facility] Department [place] [address] * Differential, auto (10/25/2024 7:07 AM CDT) Neutrophil abs 1.93 1.50 - 6.50 K/cumm Imm gran abs 0.02 0.00 - 0.10 K/cumm [facility] ([place]) Lymphocyte abs 3.30 0.80 - 3.30 K/cumm [facility] ([place]) Monocyte abs 0.39 0.20 - 0.80 K/cumm [facility] ([place]) Eosinophil abs 0.18 0.00 - 0.50 K/cumm [facility] ([place]) Basophil abs 0.03 0.00 - 0.10 K/cumm [facility] ([place]) Neutrophil pct 33.0 % [facility] ([place]) Comment: Interpretive Data Percent cell count reference ranges are not reported, since discordance with absolute values may lead to misinterpretation of CBC data. Current Interpretive Data was last revised on 2017. Imm gran pct 0.3 % [facility] ([place]) Comment: Interpretive Data Percent cell count reference ranges are not reported, since discordance with absolute values may lead to misinterpretation of CBC data. Current Interpretive Data was last revised on 2017. Lymphocyte pct 56.4 % [facility] ([place]) Comment: Interpretive Data Percent cell count reference ranges are not reported, since discordance with absolute values may lead to misinterpretation of CBC data. Current Interpretive Data was last revised on 2017. Monocyte pct 6.7 % [facility] ([place]) Comment: Interpretive Data Percent cell count reference ranges are not reported, since discordance with absolute values may lead to misinterpretation of CBC data. Current Interpretive Data was last revised on 2017. Eosinophil pct 3.1 % [facility] ([place]) Comment: Interpretive Data Percent cell count reference ranges are not reported, since discordance with absolute values may lead to misinterpretation of CBC data. Current Interpretive Data was last revised on 2017. Basophil pct 0.5 % [facility] ([place]) Comment: Interpretive Data Percent cell count reference ranges are not reported, since discordance with absolute values may lead to misinterpretation of CBC data. Current Interpretive Data was last revised on 2017. Blood 10/25/2024 7:07 AM CDT 10/25/2024 7:49 AM CDT us Shyanne DEWEY LAB BLOOD ORDERA BLES Final Result [facility] ([place] Department [place] [address] * (ABNORMAL) CBC with auto differential (10/25/2024 7:07 AM CDT) WBC 5.85 3.80 - 9.90 K/cumm Hgb 13.5 11.9 - 15.5 g/dL [facility]) Hct 40.7 35.6 - 45.5 % [facility]) Plt 230 150 - 400 K/cumm [facility] ([place]) MPV 10.7 9.1 - 12.3 fL [facility]) RBC 5.21(H) 3.90 - 5.20 M/cumm [facility] ([place]) MCV 78.1(L) 81.3 - 96.4 fL [facility] ([place]) MCH 25.9(L) 27.1 - 33.3 pg [facility] ([place]) MCHC 33.2 32.3 - 35.7 g/dL [facility] ([place]) RDW CV 14.8 11.1 - 14.9 % [facility] RDW SD 42.0 35.7 - 48.1 fL [facility] ([place]) NRBC abs 0.00 0.00 - 0.01 K/cumm [facility]) Blood 10/25/2024 7:07 AM CDT 10/25/2024 7:49 AM CDT us Shyanne Negretei PA LAB BLOOD ORDERA BLES Final Result [facility] ([place] [address] [facility] [place] [address] * TSH (10/25/2024 7:07 AM CDT) Thyroid Stimulating Hormone 2.26 0.30 - 4.20 mcIUnit/mL [facility] ([place]) Blood 10/25/2024 7:07 AM CDT 10/25/2024 7:49 AM CDT us Shyanne DEWEY LAB BLOOD ORDERA BLES Final Result [facility] ([place] [address] [facility] [place] [address] * T4, free (10/25/2024 7:07 AM CDT) Free T4 1.23 0.90 - 1.70 ng/dL [facility] ([place]) Blood 10/25/2024 7:07 AM CDT 10/25/2024 7:49 AM CDT us Shyanne Negretei PA LAB BLOOD ORDERA BLES Final Result [facility] ([place] [address] [facility] [place] [address] * (ABNORMAL) Hemoglobin A1c (10/25/2024 7:07 AM CDT) [facility] Hgb A1C 5.7(H) 4.0 - 5.6 % [facility] ([place]) Estimated Average Glucose 117 mg/dL [facility]) Comment: The ADA recommends reporting an estimated Average Glucose (eAG) with all Hemoglobin A1c results using the equation derived from a study of 507 normal and diabetic adults. Minority populations were underrepresented and children were not included. (Diabetes Care 31:2213-4361, 2008). The eAG is not equivalent to a fasting glucose. Testing performed by: [facility], [facility], [place], [address] Blood 10/25/2024 7:07 AM CDT 10/25/2024 7:49 AM CDT [facility] BL[facility] Final Result Performing Organization Address City/[facility]/ZIP Co de Phone Number [facility] ([place] Department [place] [address] * Folate (10/25/2024 7:07 AM CDT) [facility] Folic acid 13.2 >=5.0 ng/mL [facility] ([place]) Blood 10/25/2024 7:07 AM CDT 10/25/2024 7:49 AM CDT [facility] BLOOD ORDERA BLES Final Result [facility] ([place] 1 [facility] [place] [address] * Vitamin B12 (10/25/2024 7:07 AM CDT) [facility] Vitamin B12 457 230 - 1,250 pg/mL [facility]) Blood 10/25/2024 7:07 AM CDT 10/25/2024 7:49 AM CDT us Shyanne DEWEY LAB BLOOD ORDERA BLES Final Result [facility] ([place] 1 [facility] Department [place] [address] * (ABNORMAL) Lipid panel (10/25/2024 7:07 AM CDT) Cholesterol 237(H) 30 - 199 mg/dL [facility] ([place]) Comment: Interpretive Data Ages < or = 19 years Acceptable: <170 mg/dL Borderline high: 170-199 mg/dL High: >or= 200 mg/dL Ages > or = 20 years Desirable: <200 mg/dL Borderline high: 200-239 mg/dL High: >or= 240 mg/dL Literature References: 1. Expert Panel on Integrated Guidelines for Cardiovascular Health and Risk Reduction in Children and Adolescents. Pediatrics 2011;128:S213 2. NCEP Expert Panel. Circulation 2004;110:227 Current Interpretive Data was last revised on 2017. Triglycerides 124 <=149 mg/dL [facility] ([place]) Comment: Interpretive Data Ages < or = 9 years Acceptable: <75 mg/dL Borderline high: 75-99 mg/dL High: >or= 100 mg/dL Ages 10 to 20 years Acceptable: <90 mg/dL Borderline high: 90-129 mg/dL High: >or= 130 mg/dL Ages > or = 20 years Desirable: <150 mg/dL Borderline high: 150-199 mg/dL High: 200-499 mg/dL Very high: >or= 499 mg/dL Literature References: 1. Expert Panel on Integrated Guidelines for Cardiovascular Health and Risk Reduction in Children and Adolescents. Pediatrics 2011;128:S213 2. NCEP Expert Panel. Circulation 2004;110:227 Current Interpretive Data was last revised on 2017. HDL 46 >=40 mg/dL [facility] ([place]) Comment: Interpretive Data Ages < or = 19 years Acceptable: >45 mg/dL Borderline low: 40-45 mg/dL Low: <40 mg/dL Ages > or = 20 years Desirable: >or= 60 mg/dL Low: <40 mg/dL Literature References: 1. Expert Panel on Integrated Guidelines for Cardiovascular Health and Risk Reduction in Children and Adolescents. Pediatrics 2011;128:S213 2. NCEP Expert Panel. Circulation 2004;110:227 Current Interpretive Data was last revised on 2017. LDL, calculated 169(H) <=129 mg/dL [facility]) Comment: Interpretive Data Ages < or = 19 years Acceptable: <110 mg/dL Borderline high: 110-129 mg/dL High: >or= 130 mg/dL Ages > or = 20 years Optimal: <100 mg/dL Near optimal: 100-129 mg/dL Borderline high: 130-159 mg/dL High: >160 mg/dL Calculated using the Brad LDL-C estimating equation. This equation was implemented on 2023. Prior to this date LDL-C was estimated using the Friedewald equation. Literature References: 1. Expert Panel on Integrated Guidelines for Cardiovascular Health and Risk Reduction in Children and Adolescents. Pediatrics 2011;128:S213 2. NCEP Expert Panel. Circulation 2004;110:227 3. Brad Stearns et al. MARIA DEL CARMEN Cardiol. 2019June 23;5(5):540-548. doi: 10.1001/jamacardio.2020.0013 Current Interpretive Data was last revised on 2023. Testing performed by: [place], [address] Non-HDL Cholesterol 191 mg/dL [facility] ([place]) Comment: Interpretive Data Ages < or = 19 years Acceptable: <120 mg/dL Borderline high: 120-144 mg/dL High: >145 mg/dL Ages > or = 20 years When triglycerides are >200 mg/dL, Non-HDL cholesterol is a secondary target of therapy with treatment goals that are 30 mg/dL greater than the LDL cholesterol target. Literature References: 1. Expert Panel on Integrated Guidelines for Cardiovascular Health and Risk Reduction in Children and Adolescents. Pediatrics 2011;128:S213 2. NCEP Expert Panel. Circulation 2004;110:227 Current Interpretive Data was last revised on 2017. Testing performed by: [place], [address] Chol/HDL ratio 5 [facility] ([place]) Comment:Testing performed by : [place], [address] Blood 10/25/2024 7:07 AM CDT 10/25/2024 7:49 AM CDT us Shyanne DEWEY LAB BLOOD ORDERA BLES Final Result [facility] ([place]) 1 [facility] Department [place] [address] * Comprehensive metabolic panel (10/25/2024 7:07 AM CDT) Sodium 140 135 - 145 mmol/L [facility] ([place]) Potassium, pl 4.0 3.3 - 4.9 mmol/L [facility] ([place]) Chloride 105 97 - 110 mmol/L [facility] ([place]) CO2 24 22 - 32 mmol/L [facility]) Anion gap 11 2 - 15 mmol/L [facility]) BUN 12 6 - 25 mg/dL [facility]) Creatinine 0.70 0.60 - 1.10 mg/dL [facility]) Glucose 103 70 - 199 mg/dL [facility] ([place]) Comment: Interpretive Data Fasting glucose >/= 126 mg/dl is diagnostic for diabetes. Fasting is defined as no caloric intake for at least 8 hours. Fasting glucose between 100 mg/dl to 125 mg/dl is diagnostic of prediabetes. In a patient with classic symptoms of hyperglycemia or hyperglycemic crisis, a random glucose >/= 200 mg/dl is diagnostic for diabetes. In the absence of unequivocal hyperglycemia, results should be confirmed by repeat testing. The classification and Diagnosis of Diabetes Diabetes Care 202; 46: S19-S40. Current interpretive data was last revised 2022. Calcium 10.0 8.5 - 10.3 mg/dL [facility]) Bilirubin, total 0.5 0.1 - 1.2 mg/dL [facility] ([place]) Protein, pl 7.7 6.5 - 8.5 g/dL [facility]) Albumin 4.4 3.5 - 5.0 g/dL [facility]) Alk phos 97 40 - 130 Units/L [facility]) ALT 43 7 - 45 Units/L [facility]) AST 30 10 - 45 Units/L [facility] ([place]) Blood 10/25/2024 7:07 AM CDT 10/25/2024 7:49 AM CDT us Shyanne Jessie Rodriguez PA LAB BLOOD ORDERA BLES Final Result [facility] ([place]) [facility] Department [place] [address] * CT Neck Soft Tissue W Contrast (09/05/2024 11:22 AM CDT) Anatomical Region Laterality Modality Head and Neck N/A Computed Tomogra phy 09/25/2024 10:4 8 PM CDT Narrative 09/25/2024 11:02 PM CDT EXAM DESCRIPTION: CT SOFT TISSUE NECK W CONTRAST REASON FOR STUDY: localized enlarged lymph nodes Lump in neck indicated by BB marker, pt states lump has been there a long time but has gotten bigger and now is causing pain TECHNIQUE: Post IV contrast scanning from skull base through lung apices. Reconstructed MPR images reviewed. All images stored on PACS. Automated exposure control was used as a dose optimization technique for this examination. CONTRAST TYPE/DOSE: 75mL of IOVERSOL 350 MG IODINE/ML INTRAVENOUS SYRINGE injected via intravenous COMPARISON: No comparison. FINDINGS: SOFT TISSUE: No mass, edema or inflammatory change. ORAL CAVITY/FLOOR OF MOUTH, PHARYNX, LARYNX, HYPOPHARYNX: The nasopharynx and parapharyngeal regions are normal. The tonsils are mildly prominent but no definite focal lesion is seen. Partly limited evaluation of the kennedi pharynx and tongue base due to dental mu-ism artifact. Within limitation, no definable focal abnormality. No definable abnormality of the floor of mouth. Epiglottis is normal in thickness. Aryepiglottic folds are symmetric. Supraglottic larynx and vocal cords appear normal. LYMPHADENOPATHY: Marker placed over the area of palpable concern overlies a lymph node in the right posterior neck soft tissues. In this area, there are 2 small lymph nodes in the right level 2 B chain measuring short axis 5 mm and 3 mm. In addition, there is a lymph node slightly more inferiorly and posteriorly in the right occipital region as seen on series 2 axial 37. This measures short axis of roughly 6 mm and has a mildly fatty hilum. The lymph node is nonspecific but may be reactive. This small cluster of lymph nodes (2 adjacent level 2 B lymph nodes and additional upper jugular/occipital lymph node) could be followed with directed ultrasound. There are additional small lymph nodes throughout the cervical chains bilaterally. There is no pathologic appearing or abnormal size cervical lymph node. MAJOR SALIVARY GLANDS: Normal appearing parotid and submandibular glands bilaterally. No stone or inflammatory change evident. THYROID: Normal size. No nodules greater than 1 cm. VASCULATURE: No apparent critical stenosis or occlusion. INTRACRANIAL/SKULL BASE/INCLUDED ORBITS: Limited intracranial evaluation. No abnormal findings. PARANASAL SINUSES: Well-aerated. CERVICAL SPINE: No significant abnormalities. LUNG APICES: Somewhat limited evaluation due to low lung volumes and some respiratory motion. Within limitation, no definable abnormality. OTHER: No other significant finding. IMPRESSION: 1. Marker placed over the area of palpable concern overlies a small cluster of lymph nodes in the right level 2 B chain and right occipital region. These are nonspecific but may be reactive. These could be followed with directed ultrasound. 2. Slightly prominent tonsillar tissue bilaterally, partly obscured by dental mu-ism artifact. No definite abnormality identified however additional correlation with clinical exam findings of this area is recommended. 3. Otherwise, no abnormality of the soft tissues of the neck. THIS IS AN ELECTRONICALLY VERIFIED FINAL REPORT 09/25/2024 11:02 PM - Electronically signed by Yoan Elise M.D. LC: JUDY Report ID: [id number] Reading Location: [id number] Procedure Note Linda Elise MD - 09/25/2024 EXAM DESCRIPTION: CT SOFT TISSUE NECK W CONTRAST REASON FOR STUDY: localized enlarged lymph nodes Lump in neck indicated by BB marker, pt states lump has been there a longtime but has gotten bigger and now is causing pain TECHNIQUE: Post IV contrast scanning from skull base through lung apices. Reconstructed MPR images reviewed. All images stored on PACS. Automated exposure control was used as a dose optimization technique for this examination. CONTRAST TYPE/DOSE: 75mL of IOVERSOL 350 MG IODINE/ML INTRAVENOUSSYRINGE injected via intravenous COMPARISON: No comparison. FINDINGS: SOFT TISSUE: No mass, edema or inflammatory change. ORAL CAVITY/FLOOR OF MOUTH, PHARYNX, LARYNX, HYPOPHARYNX: Thenasopharynx and parapharyngeal regions are normal. The tonsils are mildly prominentbut no definite focal lesion is seen. Partly limited evaluation of the kennedi pharynx and tongue base due to dental mu-ism artifact. Within limitation, no definable focal abnormality. No definable abnormality ofthe floor of mouth. Epiglottis is normal in thickness. Aryepiglottic foldsare symmetric. Supraglottic larynx and vocal cords appear normal. LYMPHADENOPATHY: Marker placed over the area of palpable concernoverlies a lymph node in the right posterior neck soft tissues. In this area, thereare 2 small lymph nodes in the right level 2 B chain measuring short axis 5 mmand 3 mm. In addition, there is a lymph node slightly more inferiorly and posteriorly in the right occipital region as seen on series 2 axial 37.This measures short axis of roughly 6 mm and has a mildly fatty hilum. Thelymph node is nonspecific but may be reactive. This small cluster of lymphnodes (2 adjacent level 2 B lymph nodes and additional upper jugular/occipitallymph node) could be followed with directed ultrasound. There are additionalsmall lymph nodes throughout the cervical chains bilaterally. There is no pathologic appearing or abnormal size cervical lymph node. MAJOR SALIVARY GLANDS: Normal appearing parotid and submandibular glands bilaterally. No stone or inflammatory change evident. THYROID: Normal size. No nodules greater than 1 cm. VASCULATURE: No apparent critical stenosis or occlusion. INTRACRANIAL/SKULL BASE/INCLUDED ORBITS: Limited intracranialevaluation. No abnormal findings. PARANASAL SINUSES: Well-aerated. CERVICAL SPINE: No significant abnormalities. LUNG APICES: Somewhat limited evaluation due to low lung volumes andsome respiratory motion. Within limitation, no definable abnormality. OTHER: No other significant finding. IMPRESSION: 1. Marker placed over the area of palpable concern overlies a smallcluster of lymph nodes in the right level 2 B chain and right occipital region.These are nonspecific but may be reactive. These could be followed with directed ultrasound. 2. Slightly prominent tonsillar tissue bilaterally, partly obscured by dental mu-ism artifact. No definite abnormality identified however additional correlation with clinical exam findings of this area is recommended. 3. Otherwise, no abnormality of the soft tissues of the neck. THIS IS AN ELECTRONICALLY VERIFIED FINAL REPORT 09/25/2024 11:02 PM - Electronically signed by Yoan Elise M.D. LC: JUDY Report ID: [id number] Reading Location: [id number] us Shyanne DEWEY IMG CT PROCEDURE S Final Result * DIGITAL MAMMOGRAPHY (03/28/2014 3:10 PM TOOL MAINTENANCE WORKER) Anatomical Region Laterality Modality Mammography 03/28/2014 3:10 PM TOOL MAINTENANCE WORKER Narrative 04/17/2014 10:24 PM TOOL MAINTENANCE WORKER YC Diag Mamm Bi Acc#: [id number] DIAG MAMM W ADAIR BI Acc#: [id number] DATE OF EXAM: Mar 28 2014 CLINICAL [...] SUSPICIOUS FOR MALIGNANCY. 2. IF PRIOR MAMMOGRAM ([facility] 02/2013?) IS OBTAINED FOR COMPARISON, AN ADDENDUM WILL FOLLOW. BI-RADS CATEGORY 2 - BENIGN FINDINGS ADDENDUM: 04/17/14 / Efforts to obtain prior mammograms on this patient have been exhausted. No additional imaging is necessary at this time. Recommend rescreening in one year. Interpreting Physician: DR KARI ROBLES M.D. Read on: Mar 28 2014 3:57P Transcribed by: krystal On: Mar 28 2014 3:57P Approved Electronically by: TRAVIS Carbone, DR PIERCE on: Apr 17 2014 10:24P Attending: MARY ELLEN BELTRAN Requesting: MARY ELLEN BELTRAN Requesting Fax: -- Attending Fax: -- Attending ID: [id number] Requesting ID: [id number] Report To 1 ID: [id number] Report To 1 Name: MARY ELLEN BELTRAN Report To 1 FAX: -- NextGen Order #: Procedure Note Provider, MD Magui - 06/20/2016 YC Diag Mamm Bi Acc#: [id number] DIAG MAMM W ADAIR BI Acc#: [id number] DATE OF EXAM: Mar 28 2014 CLINICAL [...] interpretation of these images. This facility utilizes [employer] system to notify patients of yearly mammograms. IMPRESSION: 1. NO FINDINGS SUSPICIOUS FOR MALIGNANCY. 2. IF PRIOR MAMMOGRAM ([facility] 02/2013?) IS OBTAINED FORCOMPARISON, AN ADDENDUM WILL FOLLOW. BI-RADS CATEGORY 2 - BENIGN FINDINGS ADDENDUM: 04/17/14 CS/VM Efforts to obtain prior mammograms on thispatient have been exhausted. No additional imaging is necessary at thistime. Recommend rescreening in one year. Interpreting Physician: DR KARI ROBLES M.D. Read on: Mar 28 20143:57P Transcribed by: [facility] On: Mar 28 2014 3:57P Approved Electronically by: TRAVIS Carbone, DR PIERCE on: Apr 17 201410:24P Attending: MARY ELLEN BELTRAN Requesting: MARY ELLEN BELTRAN Requesting Fax: -- Attending Fax: -- Attending ID: [id number] Requesting ID: [id number] Report To 1 ID: [id number] Report To 1 Name: MARY ELLEN BELTRAN Report To 1 FAX: -- NextGen Order #: Historical Provider MD REID MAMMO PROCEDURES Michelle l Result from Last 3 Months or Most Recently Relevant to Health Maintenance Insurance Care Teams Residential Program Director Relationship Specialty Start Date End Date Shyanne Rodriguez PA PCP - General Physician Dynamics Ax Solution Architect 05/21/22
--- OUTSIDE RECORDS SUMMARY | 2024-10-31 12:53 | XMS_ITS | Clinical Summary ---
Author Organization [facility] Address [address] [place] [address] Phone Care Team Providers Care Supervisor [employer] Name Role Phone Shyanne Rodriguez Primary Care Provider [phone] Social History Tobacco Use Types Packs/Day Years [...] Cervical Cancer Screening (CCS) 2002 HPV/Cotest 2002 Cologuard 2017 Colonoscopy 2017 Colorectal Cancer Screening 2017 Immunochemical Fecal Occult Blood 2017 Pneumococcal Immunization (5 0+ years) (1 of 1 - PCV) 2022 Zoster Immunization (1 of 2) 2022 SARS-COV-2 Immunization (1 - season) 2023 Influenza Immunization (#1) 2024 Respiratory Syncytial Virus (RSV) Immunization (Adult) (1 - 1-dose 75+ series) 06/22/2047 Human Papillomavirus (HPV) Immunization Aged Out No longer eligible b ased on patient's age to complete this topic Meningococcal Immunization (ACWY) Aged Out No longer eligible based on patient's age to complete this topic Rotavirus Immunization Aged Out No lo nger eligible based on patient's age to complete this topic Insurance [facility] Care Teams Supervisor [employer] Relationship Specialty Start Date End Date Shyanne Rodriguez PA PCP - General Family Medicine 07/03/22
--- OUTSIDE RECORDS SUMMARY | 2024-10-31 12:53 | XMS_ITS | Clinical Summary ---
Author Organization [facility] Address [address] [place] [address] Phone Care Team Providers Care Educational Therapist Name Role Phone Unavailable Primary Care Provider [...] on file Legal Sex Female 5:45 AM [employer] Gender Identity Not on file Sexual Orientation [...] 7:38 PM CDT Height 167.6 cm (5' 6) 12/19/2008 7:38 PM CDT Body Mass Index 25.82 12/19/2008 7:38 PM CDT Plan of Treatment Health Maintenance Due Date Last Done Comments HEPATITIS B VACCINES (1 of 3 - 19+ 3-dose series) 05/25 HPV/Cotest (21-29) 1993 CERVICAL CANCER SCREENING 2002 HPV/Cotest (30-65) 2002 PAP SMEAR 2002 BREAST CANCER SCREENING 2012 COLORECTAL SCREENING 2017 Colorectal Cancer Screening 2017 FIT-DNA Q 3 years 2017 FIT/FOBT Q 1 year 2017 Flex Sig/CT Colonography Q 5 years 2017 DTAP/TDAP/TD VACCINES (2 - Td or Tdap) 12/21/2018 ZOSTER VACCINE (1 of 2) 2022 INFLUENZA VACCINE (#1) 2024 Advance Directives For more information, please contact: [phone] * Full Code (Latest Code Status on File) Date Activated Date Inactivated Comments 12/19/2008 8:22 PM 12/21/2008 10:12 PM * Full Code Date Activated Date Inactivated Comments 12/19/2008 7:54 PM 12/19/2008 8:22 PM
== END 2024-10-31 12:45 | disposition home or self-care (01) ==
LOC: ANHFOHIMG 12:48
PROVIDERS: PCP Physician Assistant; Visit Provider Obstetrics & Gynecology
DX: N64.89 Other specified disorders of breast (principal); R92.8 Other abnormal and inconclusive findings on diagnostic imaging of breast
CPT/HCPCS: 77061; 77065; G0279